=== PATIENT | female | born 1970 | race Caucasian/White ===

== ENCOUNTER 2019-12-30 00:36 | Outpatient (CLI) | payer BC, SELFPAY ==
[2019-12-30 21:18] LABS: SARS-CoV-2 RNA PCR Negative
== END 2019-12-30 00:37 | disposition home or self-care (01) ==
LOC: ANHCOVIDDT 00:36
PROVIDERS: PCP Family Medicine; Visit Provider Internal Medicine Gastroenterology
DX: Z01.812 Encounter for preprocedural laboratory examination (principal); Z20.828 Contact with and (suspected) exposure to other viral communicable diseases
CPT/HCPCS: 87635; C9803; U0003

== ENCOUNTER 2020-01-02 01:20 | Day surgery (SDC) | payer BC, SELFPAY ==
[2019-12-28 11:10] VITALS: BMI 29.5
--- NOTE | 2020-01-01 11:56 | WPDANESEPPF ---
Anes - Initial Pre Proc Eval Procedure: Operation Date: 01/02/20 10:30 Proposed Procedures p Esophagogastroduodenoscopy & Colonoscopy - Ernst Lawton MD Date/Time: 01/01/20 11:56 Surgeon: Ernst Lawton MD Pre Op Diagnosis: anemic, occult GI bleeding Patient Data Age: 49 Gender: F Height: 1.61 m Weight: 77 kg Allergies Allergy/AdvReac Type Severity Reaction Status Date / Time chlorpheniramine Allergy Intermediate unknown Verified 01/02/20 09:43 [Ed A-Hist DM] dextromethorphan Allergy Intermediate unknown Verified 01/02/20 09:43 [Ed A-Hist DM] phenylephrine [Ed A-Hist DM] Allergy Intermediate unknown Verified 01/02/20 09:43 pseudoephedrine Allergy Intermediate Dizziness Verified 01/02/20 09:43 ranitidine Allergy Intermediate Rash Verified 01/02/20 09:43 triprolidine [Aprodine] Allergy Intermediate unknown Verified 01/02/20 09:43 Home Medications Medication Instructions Recorded Confirmed Type cetirizine 10 mg tablet 10 mg PO BID 11/28/19 12/28/19 History famotidine 40 mg tablet 40 mg PO BID tablet 11/28/19 12/28/19 History hydroxychloroquine 200 mg tablet 200 mg PO BID 11/28/19 12/28/19 History simvastatin 5 mg tablet 5 mg PO DAILY #30 tablet 11/28/19 12/28/19 Rx doxycycline hyclate 100 mg capsule 100 mg PO DAILY #15 cap 12/21/19 12/28/19 Rx Patient hx anesthesia problems: none Family hx anesthesia problems: none PMFSH Past Medical History Medical History Allergies Arthritis Asthma High cholesterol IBS (irritable bowel syndrome) Migraine Obesity Thigh abscess Surgical History Surgical History H/O tubal ligation S/P D&C (status post dilation and curettage) Family History Family History Grandparent Diabetes mellitus Cerebrovascular accident Father Hypertension, Onset Age: 51 Family history of elevated blood lipids, Onset Age: 51 Acute myocardial infarction, Onset Age: 51 Family history of coronary artery disease, Onset Age: 51 Mother Family history of rheumatoid arthritis Social History Social History Smoking packs per day: 1 Smoking cigarettes per day: 20.0 Years smoked: 15 Smoking pack-years: 15.00 Smoking status: Former smoker Tobacco type: cigarettes Alcohol intake: current Substance use: current Substance use type: marijuana Last use: WEEK Living arrangements: with family 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 Anes - Eval Final PreProcedure Day of Procedure 01/01/20 11:56 Patient weight: overweight Heart: regular rate and rhythm Lungs: clear to auscultation and normal air movement Airway: Mallampati scale class II Neurological: alert and oriented Last oral intake: >/= 8 hours ASA classification: III Emergent: no Anesthetic plan: proceed Anesthesia type and monitoring: general GIVS and standard monitoring Informed Consent: The patient's anesthetic plan and its attendant risks and benefits were discussed with the patient/family/POA. Questions were solicited and answers provided to the satisfaction of the patient/family/POA.
[2020-01-02 09:44] VITALS: BP 105/66; PULSE 72; RESP 16; TEMP 36.6; O2SAT 100; BMI 29.2
[2020-01-02] MEDS: LACTATED RINGERS 1,000 ML 150 ML IV CONT (10:09)
--- NOTE | 2020-01-02 10:15 | WPDGICN ---
Assessment and Plan Assessment and plan (1) SONY (iron deficiency anemia): Code(s): D50.9 - Iron deficiency anemia, unspecified Status: Acute Assessment and Plan: Patient found to have iron deficiency anemia. Now with occult blood in stools. Plan is for both colonoscopy EGD in small-bowel series if necessary to evaluate for iron deficiency. An occult blood loss. Iron replacement will start after endoscopy is accomplished. Further recommendations will be given after endoscopy. (2) Occult blood in stools: Code(s): R19.5 - Other fecal abnormalities Status: Acute (3) Hidradenitis suppurativa: Code(s): L73.2 - Hidradenitis suppurativa Status: Acute GI Consult Note Consult date/time: 01/02/20 10:15 HPI: Mag Thurston is a 49 year old female Seen in evaluation at the request of Dr. Alma Toth. patient reports that she became weak after receiving a flu shot. She was evaluated with blood count which revealed her to be anemic. Iron indices were noted to be low. Patient denies any obvious blood in her stools. However stools were confirmed e Hemoccult-psitive in primary doctor's office. Family history is noncontributory. Past medical history is significant for hidradenitis suppurativa. She has had abscesses drained most recently on her thigh. Review of Systems Review of Systems: All systems reviewed & are unremarkable except as noted in HPI and below PMFSH Past Medical History Medical History Allergies Arthritis Asthma High cholesterol IBS (irritable bowel syndrome) Migraine Obesity Thigh abscess Surgical History Surgical History H/O tubal ligation S/P D&C (status post dilation and curettage) Family History Family History Grandparent Diabetes mellitus Cerebrovascular accident Father Hypertension, Onset Age: 51 Family history of elevated blood lipids, Onset Age: 51 Acute myocardial infarction, Onset Age: 51 Family history of coronary artery disease, Onset Age: 51 Mother Family history of rheumatoid arthritis Social History Social History Smoking packs per day: 1 Smoking cigarettes per day: 20.0 Years smoked: 15 Smoking pack-years: 15.00 Smoking status: Former smoker Tobacco type: cigarettes Alcohol intake: current Substance use: current Substance use type: marijuana Last use: WEEK Living arrangements: with family 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 Meds Home Medications and Allergies Home Medications Medication Instructions Recorded Confirmed Type cetirizine 10 mg tablet 10 mg PO BID 11/28/19 12/28/19 History famotidine 40 mg tablet 40 mg PO BID tablet 11/28/19 12/28/19 History hydroxychloroquine 200 mg tablet 200 mg PO BID 11/28/19 12/28/19 History simvastatin 5 mg tablet 5 mg PO DAILY #30 tablet 11/28/19 12/28/19 Rx doxycycline hyclate 100 mg capsule 100 mg PO DAILY #15 cap 12/21/19 12/28/19 Rx Allergies Allergy/AdvReac Type Severity Reaction Status Date / Time chlorpheniramine Allergy Intermediate unknown Verified 01/02/20 09:43 [Ed A-Hist DM] dextromethorphan Allergy Intermediate unknown Verified 01/02/20 09:43 [Ed A-Hist DM] phenylephrine [Ed A-Hist DM] Allergy Intermediate unknown Verified 01/02/20 09:43 pseudoephedrine Allergy Intermediate Dizziness Verified 01/02/20 09:43 ranitidine Allergy Intermediate Rash Verified 01/02/20 09:43 triprolidine [Aprodine] Allergy Intermediate unknown Verified 01/02/20 09:43 Vital Signs Vital Signs - 24 hr 01/02/20 09:44 Temperature 97.8 F Pulse Rate 72 Respiratory Rate 16 Blood Pressure 105/66 Pulse Oximetry 100
[2020-01-02 10:57] VITALS: BP 91/50; PULSE 76; RESP 17; O2SAT 99
[2020-01-02 11:07] VITALS: BP 106/58; PULSE 70; RESP 20; O2SAT 100
[2020-01-02 11:17] VITALS: BP 121/81; PULSE 75; RESP 19; O2SAT 100
[2020-01-02 11:23] LABS: Hematocrit 32.9 % (37.0-47.0); Hemoglobin 10.2 g/dL (12.0-15.0); Mean Corpuscular Hemoglobin 25.2 pg (26-34); Mean Corpuscular Volume 81.4 fl (80-100); Mean Platelet Volume 9.4 fl (7.4-10.4); Platelet Count Result 335 k/mm3 (150-375); Red Blood Count 4.04 M/mm3 (4.2-5.4); Red Cell Distribution Width 15.1 % (11.5-14.5); White Blood Count 6.2 K/mm3 (4.5-10.0)
[2020-01-02 11:34] LABS: Alanine Aminotransferase 17 U/L (4-35); Albumin Level 3.7 g/dL (3.5-5.1); Alkaline Phosphatase 106 U/L (38-126); Anion Gap 5 mmol/L (8-16); Aspartate Amino Transferase 29 U/L (14-36); Bilirubin,Total 0.3 mg/dL (0.2-1.3); Blood Urea Nitrogen 8 mg/dL (7-17); Calcium 8.8 mg/dL (8.4-10.2); Carbon Dioxide 32 mmol/L (22-30); Chloride 103 mmol/L (98-107); Estimated CRCL calculation 74 ml/min; Estimated Glomerular Filt Rate > 60; Glucose 82 mg/dL (65-105); Sodium 140 mmol/L (137-145)
[2020-01-02 12:05] LABS: Carcinoembryonic Antigen 2.2 ng/mL (0.0-3.0)
== END 2020-01-02 11:34 | disposition home or self-care (01) ==
PROVIDERS: PCP Family Medicine; Visit Provider Internal Medicine Gastroenterology
PROC: 0DJ08ZZ Inspection of Upper Intestinal Tract, Via Natural or Artificial Opening Endoscopic (ICD-10-PCS; CPT 43235; principal; 2020-01-02 10:30)
DX: R19.5 Other fecal abnormalities (principal); D50.9 Iron deficiency anemia, unspecified; D12.2 Benign neoplasm of ascending colon; D12.3 Benign neoplasm of transverse colon; K64.8 Other hemorrhoids; K58.9 Irritable bowel syndrome, unspecified; E78.00 Pure hypercholesterolemia, unspecified; J45.909 Unspecified asthma, uncomplicated; Z87.891 Personal history of nicotine dependence; F12.90 Cannabis use, unspecified, uncomplicated
CPT/HCPCS: 45380; 45385; 45381; 36415; 80053; 82378; 85027; 87081; 88305; J2704; J7120

== ENCOUNTER 2020-03-17 17:40 | Emergency (ER) | payer BC, SELFPAY ==
[2020-03-17] VITALS (23 sets, daily range): BP systolic 105–132; BP diastolic 61–100; PULSE 107; RESP 20; TEMP 36.4; O2SAT 85–98
--- NOTE | ~2020-03-17 | CT_ITS ---
EXAMINATION: CT abdomen pelvis w con DATE: 03/17/2020 20:12 INDICATION: Postoperative abdominal pain TECHNIQUE: Computed tomography (CT) of the abdomen and pelvis was performed without intravenous contr ast. Automated exposure control and iterative reconstruction technique were employed. Exam dose: 582 .43 mGy-cm total exam DLP. COMPARISON: 07/02/2005 CT abdomen FINDINGS: There is mild focal atelectasis at the dependent lower lobes. Normal heart size. No pericardial or pleural effusion. Small sliding hiatal hernia. No hepatic, splenic, pancreatic, adrenal or renal space occupying mass lesion is detected. There is a 2 mm nonobstructing lower pole right renal calculus. Normal caliber of the abdominal aorta. No intraperitoneal or retroperitoneal or pelvic mass lesion o r lymphadenopathy. The uterus, adnexal areas and urinary bladder are unremarkable. There is focal minimal narrowing and wall thickening at the hepatic flexure of the colon. There is s urgical resection of the proximal right colon. There is multilocular up to 3.5 cm wide 5.3 cm vertical dimension fluid collection with peripheral en hancement in the right lower quadrant along the right lateral aspect of the ascending colon, consiste nt with bowel leak and/or abscesses. There is surrounding fat stranding consistent with inflammation. There are gas containing small and large bowel with fluid levels, consistent with mild adynamic ileus . No bowel obstruction is evident. There is mild free fluid in the cul de sac. IMPRESSION: Multilocular abscess along the right lateral aspect of the ascending colon proximal to t he partial right colectomy Focal soft tissue thickening of the wall of the colon and luminal narrowing at the splenic flexure of the colon. Colon mass at this site is not excluded. 2 mm nonobstructing lower pole right renal calculus Reviewed, dictated and finalized at [facility] Reviewed, dictated and finalized at [facility]. 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 Colon mass at this site is not excluded. 2 mm nonobstructing lower pole right renal calculus
--- NOTE | ~2020-03-17 | XR_ITS ---
XR abdomen obstructive series DATE: 03/17/2020 19:14 INDICATION: Right upper quadrant abdominal pain. Status post colon resection 02/24/2020. TECHNIQUE: Portable supine AP and upright AP views COMPARISON: None FINDINGS: There are numerous nondilated gas distended small bowel segments overlying the abdomen, as well as gaseous distention of much of the colon. The appearance may be consistent with adynamic ileus . Recommend clinical correlation. No intraperitoneal free air is detected. No visceromegaly is evident. No significant abnormal calcification is detected. The included lower lung zones appear clear. Heart size appears normal. IMPRESSION: Gas distended small bowel and large bowel, possibly secondary to adynamic ileus; recommen d clinical correlation. No intraperitoneal free air is detected Reviewed, dictated and finalized at [facility] Reviewed, dictated and finalized at [facility]. 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 No intraperitoneal free air is de tected
--- NOTE | 2020-03-17 18:03 | ED.GENADULT ---
HPI - General Adult General Chief complaint: Abdominal Pain Stated complaint: post op issues Time Seen by Provider: 03/17/20 17:51 Source: patient and family (mother) Mode of arrival: ambulatory Limitations: no limitations History of Present Illness HPI narrative: 49-year-old woman who is status post laproscopic right colectomy for 5 cm adenoma in ascending colon, procedure was 02/24/2020. Discharged on day 2 and had been doing well until this week when she developed significant RUQ pain and fever. Mother reports to be 100.2 yesterday and today, treating with tylenol. She has been having diarrhea, normal in color. she had advanced her diet as tolerated as directed by surgeon. She is taking all medications as recommended. Related Data Home Medications Medication Instructions Recorded Confirmed cetirizine 10 mg tablet 10 mg PO BID 11/28/19 04/08/20 famotidine 40 mg tablet 40 mg PO BID tablet 11/28/19 04/08/20 hydroxychloroquine 200 mg tablet 200 mg PO BID 11/28/19 04/08/20 ferrous sulfate 325 mg (65 mg 325 mg PO BID 01/09/20 04/08/20 iron) tablet omeprazole 40 mg capsule,delayed 40 mg PO BID 01/09/20 04/08/20 release Allergies Allergy/AdvReac Type Severity Reaction Status Date / Time chlorpheniramine Allergy Intermediate unknown Verified 04/08/20 10:48 [Ed A-Hist DM] dextromethorphan Allergy Intermediate unknown Verified 04/08/20 10:48 [Ed A-Hist DM] phenylephrine [Ed A-Hist DM] Allergy Intermediate unknown Verified 04/08/20 10:48 pseudoephedrine Allergy Intermediate Dizziness Verified 04/08/20 10:48 ranitidine Allergy Intermediate Rash Verified 04/08/20 10:48 triprolidine [Aprodine] Allergy Intermediate unknown Verified 04/08/20 10:48 Review of Systems Review of Systems: All systems reviewed & are unremarkable except as noted in HPI and below PMFSH Past Medical History Medical History (Updated 04/08/20 @ 11:15 by Alma Toth DO) Allergies Arthritis Asthma High cholesterol Hives of unknown origin IBS (irritable bowel syndrome) Migraine Obesity Thigh abscess Surgical History Surgical History (Updated 04/10/20 @ 08:50 by Amberly Gonsalves PA-C) Abscess of right thigh H/O tubal ligation S/P D&C (status post dilation and curettage) Status post colectomy right colectomy 02/24/20 Family History Family History Grandparent Diabetes mellitus Cerebrovascular accident Father Hypertension, Onset Age: 51 Family history of elevated blood lipids, Onset Age: 51 Acute myocardial infarction, Onset Age: 51 Family history of coronary artery disease, Onset Age: 51 Mother Family history of rheumatoid arthritis Social History Social History Years smoked: 15 Smoking status: Current every day smoker Tobacco type: cigarettes Alcohol intake: current Substance use: current Substance use type: marijuana Last use: WEEK 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 Exam Const: General: ill appearing Orientation/consciousness: patient oriented x3 Eyes: Conjunctivae: conjunctivae normal Pupils: Equal, round and reactive pupils present Resp: Effort & Inspection: normal respiratory effort Auscultation: clear to auscultation bilaterally Cardio: Rate: regular rate and tachycardic GI: GI Palp: Yes Soft to palpation and Yes Tenderness to palpation present (GI) (RUQ and flank) Auscultation: normal bowel sounds Back/Spine/Pelvis: Back: no CVA tenderness Skin: General skin exam: normal color Other: laproscope incisions healing well, no erythema or drainage. Neuro: General: patient oriented x3 Extrem: General: normal to inspection Psych: Affect: Anxious affect present Course Course Emergency Course: CT shows abscess at surgical site. Spoke with Dr. Dong
[2020-03-17 18:32] LABS: Basophils Absolute Auto 0.1 K/mm3 (0.0-0.1); Basophils Percent Auto 0.4 % (0.2-1.2); Eosinophils Absolute Auto 0.1 K/mm3 (0-0.3); Eosinophils Percent Auto 0.7 % (0-4.4); Hematocrit 37.4 % (37.0-47.0); Hemoglobin 11.9 g/dL (12.0-15.0); Immature Granulocyte Absolute 0.04 K/mm3 (0.00-0.031); Immature Granulocyte Percent A 0.3 % (0-0.5); Lymphocytes Absolute Auto 1.94 K/mm3 (0.9-3.2); Mean Corpuscular HGB Conc 31.8 g/dl (32-36); Mean Corpuscular Hemoglobin 26.9 pg (26-34); Mean Corpuscular Volume 84.6 fl (80-100); Mean Platelet Volume 9.7 fl (7.4-10.4); Monocytes Absolute Auto 1.2 K/mm3 (0.1-0.6); Monocytes Percent Auto 9.3 % (2.6-8.5); Neutrophils Absolute Auto 9.6 K/mm3 (1.3-6.7); Neutrophils Percent Auto 74.3 % (45.5-73.1); Platelet Count Result 457 k/mm3 (150-375); Red Blood Count 4.42 M/mm3 (4.2-5.4)
[2020-03-17 18:40] LABS: Add Urine Microscopic? YES; Appearance Urine Clear (Clear); Bilirubin Urine Negative (Negative); Blood Urine Negative (Negative); Color Urine Amber (Yellow); Glucose Urine UA Negative (Negative); Ketones Urine Trace mg/dL (Negative); Leukocyte Esterase Ur Negative LEU/UL (Negative); Mucus Urine Heavy /lpf; Nitrate Urine Negative (Negative); Protein Urine 2+ mg/dL (Negative); Squamous Epithelial Cell Urine Moderate /hpf (Few); WBC Urine 0-3 /hpf
[2020-03-17 18:43] LABS: Lactic Acid Reflex 0.7 mmol/L (0.7-2.1)
[2020-03-17 18:44] LABS: Alanine Aminotransferase 22 U/L (4-35); Albumin Level 3.9 g/dL (3.5-5.1); Alkaline Phosphatase 147 U/L (38-126); Anion Gap 6 mmol/L (8-16); Aspartate Amino Transferase 25 U/L (14-36); Bilirubin,Total 0.4 mg/dL (0.2-1.3); Blood Urea Nitrogen 10 mg/dL (7-17); Calcium 9.1 mg/dL (8.4-10.2); Carbon Dioxide 27 mmol/L (22-30); Chloride 100 mmol/L (98-107); Estimated CRCL calculation 71 ml/min; Estimated Glomerular Filt Rate > 60; Glucose 109 mg/dL (65-105); Lipase 103 U/L (23-300); Potassium 3.7 mmol/L (3.4-5.0); Sodium 133 mmol/L (137-145)
[2020-03-17] MEDS: HYDROmorphone HCL INJ (*CRX) 1 MG/ML SYR IV PUSH (19:02)
[2020-03-17] MEDS: SODIUM CHLORIDE 0.9% IV 1,000 ML 999 ML IV CONT (19:03)
[2020-03-17] MEDS: HYDROmorphone HCL INJ (*CRX) 1 MG/ML SYR 0.5 MG IV PUSH (22:18)
[2020-03-18] VITALS (11 sets, daily range): BP systolic 108–109; BP diastolic 58–65; PULSE 81–86; RESP 18–20; O2SAT 97–98
--- NOTE | 2020-03-18 00:54 | PC.NURSE ---
report called to Jocelyn Amaya.
--- NOTE | 2020-03-18 01:01 | PC.NURSE ---
called [facility] to request transport. ETA [id number]
== END 2020-03-18 01:51 | disposition short-term general hospital (02) ==
PROVIDERS: Physician Assistant; Emergency Provider Emergency Medicine; PCP Family Medicine
DX: T81.43XA Infection following a procedure, organ and space surgical site, initial encounter (principal); K63.0 Abscess of intestine; M19.90 Unspecified osteoarthritis, unspecified site; J45.909 Unspecified asthma, uncomplicated; E78.00 Pure hypercholesterolemia, unspecified; K58.9 Irritable bowel syndrome, unspecified; E66.9 Obesity, unspecified; Z68.28 Body mass index [BMI] 28.0-28.9, adult; Z87.891 Personal history of nicotine dependence
CPT/HCPCS: 36415; 74019; 74177; 80053; 81001; 83605; 83690; 85025; 87040; 96361; 96365; 96375; 96376; 99285; J1170; J2543; J7030; Q9967

== ENCOUNTER 2020-08-30 12:20 | Emergency (ER) | payer BC, SELFPAY ==
--- NOTE | ~2020-08-30 | XR_ITS ---
EXAMINATION: XR chest 2V EXAM DATE: 08/30/2020 12:53 INDICATION: Cough, congestion and shortness of breath, wheezing.. TECHNIQUE: Frontal and lateral projections of the chest obtained and reviewed. There is no prior muna dy for comparison. FINDINGS: The lungs are clear. There are no pleural effusions. The cardiomediastinal silhouette is within normal limits. There is no pneumothorax suspected. The bones and soft tissues are unremarkab le. IMPRESSION: No acute cardiopulmonary findings. Reviewed, dictated and finalized at [facility].
[2020-08-30 12:28] VITALS: BP 138/81; PULSE 94; RESP 20; TEMP 37.1; O2SAT 96
--- NOTE | 2020-08-30 12:34 | ED.URI ---
HPI - URI/Sore Throat General Chief Complaint: Upper Respiratory Infection Stated Complaint: sinus issues/congestion/cough Time Seen by Provider: 08/30/20 12:34 Source: patient and RN notes reviewed Mode of arrival: ambulatory Limitations: no limitations History of Present Illness HPI Narrative: 50-year-old female presents to the [facility] with complaints of a productive cough, facial pain and pressure, nasal congestion. States symptoms have been going on for over 4 days. Has tried rjfc-[id number] products and leftover amoxicillin with no relief at all. Patient is a smoker. Has not been able to smoke for the last 2 days due to her symptoms. States that she is allergic to multiple tkzj-itn-hqsetsh products. Patient has a history of bronchitis. Has been taking her yosq-aka-gwetrar allergy medication as well Related Data Home Medications Medication Instructions Recorded Confirmed cetirizine 10 mg tablet 10 mg PO BID 11/28/19 08/30/20 famotidine 40 mg tablet 40 mg PO BID tablet 11/28/19 08/30/20 hydroxychloroquine 200 mg tablet 200 mg PO BID 11/28/19 08/30/20 omeprazole 40 mg capsule,delayed 40 mg PO BID 01/09/20 08/30/20 release Allergies Allergy/AdvReac Type Severity Reaction Status Date / Time chlorpheniramine Allergy Intermediate unknown Verified 08/30/20 12:43 [Ed A-Hist DM] dextromethorphan Allergy Intermediate unknown Verified 08/30/20 12:43 [Ed A-Hist DM] phenylephrine [Ed A-Hist DM] Allergy Intermediate unknown Verified 08/30/20 12:43 pseudoephedrine Allergy Intermediate Dizziness Verified 08/30/20 12:43 ranitidine Allergy Intermediate Rash Verified 08/30/20 12:43 triprolidine [Aprodine] Allergy Intermediate unknown Verified 08/30/20 12:43 Review of Systems Review of Systems: All systems reviewed & are unremarkable except as noted in HPI and below Constitutional: Constitutional: Reports as per HPI, Reports no additional constitutional complaints, Denies chills and Reports fever(s) (Low-grade 99 9) Eyes: Eyes: Reports no additional eye complaints, Denies change in vision and Denies photophobia ENT: Reports as per HPI and Reports nasal congestion Cardiovascular: Cardiovascular: Reports no additional cardiovascular complaints and Denies chest pain Respiratory: Respiratory: Reports as per HPI, Reports chest congestion, Reports cough, Reports dyspnea and Denies wheezing Gastrointestinal: Gastrointestinal: Reports no additional gastrointestinal complaints Genitourinary: Genitourinary: Reports no additional female genitourinary complaints Musculoskeletal: Musculoskeletal: Reports no additional musculoskeletal complaints Integumentary/Breasts: Skin/Breast: Reports system reviewed and no additional complaints, except as docu Neurologic: Reports system reviewed and no additional complaints, except as documented Psychiatric: Psychiatric: Reports no additional psychiatric complaints Allergic/Immunologic: Allergic/Immunologic: Reports no additional allergic/immunologic complaints COUNT INCLUDES THE [facility] Past Medical History Medical History Allergies Arthritis Asthma High cholesterol Hives of unknown origin IBS (irritable bowel syndrome) Migraine Obesity Thigh abscess Surgical History Surgical History Abscess of right thigh H/O tubal ligation S/P D&C (status post dilation and curettage) Status post colectomy right colectomy 02/24/20 Family History Family History Grandparent Diabetes mellitus Cerebrovascular accident Father Hypertension, Onset Age: 51 Family history of elevated blood lipids, Onset Age: 51 Acute myocardial infarction, Onset Age: 51 Family history of coronary artery disease, Onset Age: 51 Mother Family history of rheumatoid arthritis Social History Social History Years smoked
[2020-08-30] MEDS: ALBUTEROL SULFATE NEB 2.5 MG/3 ML INH INHALATION (12:57)
[2020-08-30] MEDS: IPRATROPIUM BR 0.02% INH SOLN 0.5 MG/2.5 ML VIAL INHALATION (12:57)
[2020-08-30] MEDS: predniSONE 20 MG TABLET 40 MG PO (12:57)
[2020-08-30 13:26] VITALS: O2SAT 98
== END 2020-08-30 13:43 | disposition home or self-care (01) ==
PROVIDERS: Emergency Provider Nurse Practitioner; PCP Family Medicine
DX: J40 Bronchitis, not specified as acute or chronic (principal); F17.210 Nicotine dependence, cigarettes, uncomplicated; J45.909 Unspecified asthma, uncomplicated; E78.00 Pure hypercholesterolemia, unspecified; E66.9 Obesity, unspecified; Z68.30 Body mass index [BMI] 30.0-30.9, adult
CPT/HCPCS: 71046; 94640; 99213; G0463; J7512

== ENCOUNTER 2021-04-09 09:24 | Outpatient (CLI) | payer BC, SELFPAY ==
--- NOTE | ~2021-04-09 | XR_ITS ---
EXAMINATION: XR knee RT min 4V DATE: 04/09/2021 09:40 INDICATION: Right knee pain TECHNIQUE: Four views of the right knee were obtained. COMPARISON: None. FINDINGS: Alignment is normal. No fracture or osteochondral lesion. Joint spaces are normal with no e rosions. No joint effusion/synovitis. Soft tissues are unremarkable. IMPRESSION: 1. No acute osseous abnormality. Reviewed, dictated and finalized at location [facility]. ATOLOGICAL SURGEON
== END 2021-04-09 09:25 | disposition home or self-care (01) ==
LOC: ANHIMG 09:28
PROVIDERS: PCP Family Medicine; Visit Provider Family Medicine
DX: M25.561 Pain in right knee (principal)
CPT/HCPCS: 73564

== ENCOUNTER 2021-04-18 02:24 | Day surgery (SDC) | payer BC, SELFPAY ==
[2021-04-03 13:42] VITALS: BMI 31.0
--- NOTE | 2021-04-17 13:23 | P.PNAN_ITS ---
Anes - Eval Pre Procedure Procedure: Operation Date: 04/18/21 07:30 Proposed Procedures p Screening Colonoscopy - Ernst Lawton MD Date/Time: 04/17/21 13:23 Pre Op Diagnosis: hx of colon polyps Patient Data Age: 50 Gender: F Height: 1.6 m Weight: 79.5 kg Allergies Allergy/AdvReac Type Severity Reaction Status Date / Time chlorpheniramine Allergy Intermediate unknown Verified 04/07/21 11:50 [Ed A-Hist DM] dextromethorphan Allergy Intermediate unknown Verified 04/07/21 11:50 [Ed A-Hist DM] phenylephrine [Ed A-Hist DM] Allergy Intermediate unknown Verified 04/07/21 11:50 pseudoephedrine Allergy Intermediate Dizziness Verified 04/07/21 11:50 ranitidine Allergy Intermediate Rash Verified 04/07/21 11:50 triprolidine [Aprodine] Allergy Intermediate unknown Verified 04/07/21 11:50 Home Medications Medication Instructions Recorded Confirmed Type cetirizine 10 mg tablet 10 mg PO BID 11/28/19 04/07/21 History famotidine 40 mg tablet 40 mg PO BID tablet 11/28/19 04/07/21 History hydroxychloroquine 200 mg tablet 200 mg PO BID 11/28/19 04/07/21 History inhalational spacing device #1 ea 08/30/20 04/07/21 Rx [Aerochamber with Flowsignal] albuterol sulfate 90 mcg/actuation 2 puff INHALATION QID PRN #8.5 g 10/07/20 04/07/21 Rx aerosol inhaler simvastatin 10 mg tablet See Rx Instructions .ROUTE 03/24/21 04/07/21 Rx .COMPLEX #30 tablet naltrexone 8 mg-bupropion 90 mg 1 tablet PO .use as directed #70 04/07/21 04/07/21 Rx tablet,extended release tablet naproxen 500 mg tablet 500 mg PO BID PRN #60 tablet 04/07/21 04/07/21 Rx Patient hx anesthesia problems: none Family hx anesthesia problems: none Results Review: All pre-operative results and documents have been reviewed as part of the pre-operative evaluation. [facility] Past Medical History Medical History (Updated 04/17/21 @ 13:23 by James Basilio DO) Allergies Arthritis Asthma Colonic mass GERD (gastroesophageal reflux disease) High cholesterol Hives of unknown origin IBS (irritable bowel syndrome) Migraine Obesity Occult blood in stools PONV (postoperative nausea and vomiting) Thigh abscess Surgical History Surgical History Abscess of right thigh H/O tubal ligation S/P D&C (status post dilation and curettage) Status post colectomy right colectomy 02/24/20 Family History Family History Grandparent Diabetes mellitus Cerebrovascular accident Father Hypertension, Onset Age: 51 Family history of elevated blood lipids, Onset Age: 51 Acute myocardial infarction, Onset Age: 51 Family history of coronary artery disease, Onset Age: 51 Mother Family history of rheumatoid arthritis Social History Social History Smoking packs per day: 1 Smoking cigarettes per day: 20.0 Years smoked: 22 Smoking pack-years: 22.00 Tobacco type: cigarettes Alcohol intake: current Substance use: current Substance use type: marijuana Last use: WEEK 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
[2021-04-18 06:25] VITALS: BP 130/75; PULSE 68; RESP 18; TEMP 37.1; O2SAT 99; BMI 31.9
[2021-04-18] MEDS: LACTATED RINGERS 1,000 ML 150 ML IV CONT (06:45)
--- NOTE | 2021-04-18 06:48 | WPDANESEFPP ---
Anes - Eval Final PreProcedure Day of Procedure 04/18/21 06:48 Patient weight: obese Heart: regular rate and rhythm Lungs: clear to auscultation Airway: Mallampati scale class II Neurological: alert and oriented Last oral intake: >/= 8 hours ASA classification: III Emergent: no Anesthetic plan: proceed Anesthesia type and monitoring: general GIVS and standard monitoring Results Review: All pre-operative results and documents have been reviewed as part of the pre-operative evaluation. Informed Consent: The patient's anesthetic plan and its attendant risks and benefits were discussed with the patient/family/POA. Questions were solicited and answers provided to the satisfaction of the patient/family/POA.
--- NOTE | 2021-04-18 07:16 | WPDGICN ---
Assessment and Plan Assessment and plan (1) History of colon polyps: Code(s): Z86.010 - Personal history of colonic polyps Status: Acute Assessment and Plan: Patient has a history of a large colon polyp requiring right hemicolectomy 1 year and half years ago. Plan is for surveillance colonoscopy at now and at less frequent intervals in the future. GI Consult Note Consult date/time: 04/18/21 07:16 HPI: Mag Thurston is a 50 year old female Presents for follow-up colonoscopy. Patient was found have a very large colon polyp that required surgical resection 1-1/2 years ago. She presents today for follow-up surveillance exam. She reports that her stools are somewhat loose. She denies abdominal pain. She has had no bleeding. Family history is noncontributory. FORMERLY [facility] Past Medical History Medical History (Updated 04/18/21 @ 07:17 by Ernst Lawton MD) Allergies Arthritis Asthma Colonic mass GERD (gastroesophageal reflux disease) High cholesterol Hives of unknown origin IBS (irritable bowel syndrome) Migraine Obesity Occult blood in stools PONV (postoperative nausea and vomiting) Thigh abscess Surgical History Surgical History Abscess of right thigh H/O tubal ligation S/P D&C (status post dilation and curettage) Status post colectomy right colectomy 02/24/20 Family History Family History Grandparent Diabetes mellitus Cerebrovascular accident Father Hypertension, Onset Age: 51 Family history of elevated blood lipids, Onset Age: 51 Acute myocardial infarction, Onset Age: 51 Family history of coronary artery disease, Onset Age: 51 Mother Family history of rheumatoid arthritis Social History Social History Smoking packs per day: 1 Smoking cigarettes per day: 20.0 Years smoked: 15 Smoking pack-years: 15.00 Tobacco type: cigarettes Alcohol intake: current Substance use: current Substance use type: marijuana Last use: WEEK Living arrangements: with family 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 Meds Home Medications and Allergies Home Medications Medication Instructions Recorded Confirmed Type cetirizine 10 mg tablet 10 mg PO BID 11/28/19 04/07/21 History famotidine 40 mg tablet 40 mg PO BID tablet 11/28/19 04/07/21 History hydroxychloroquine 200 mg tablet 200 mg PO BID 11/28/19 04/07/21 History inhalational spacing device #1 ea 08/30/20 04/07/21 Rx [Aerochamber with Flowsignal] albuterol sulfate 90 mcg/actuation 2 puff INHALATION QID PRN #8.5 g 10/07/20 04/07/21 Rx aerosol inhaler simvastatin 10 mg tablet See Rx Instructions .ROUTE 03/24/21 04/07/21 Rx .COMPLEX #30 tablet naltrexone 8 mg-bupropion 90 mg 1 tablet PO .use as directed #70 04/07/21 04/07/21 Rx tablet,extended release tablet naproxen 500 mg tablet 500 mg PO BID PRN #60 tablet 04/07/21 04/07/21 Rx Allergies Allergy/AdvReac Type Severity Reaction Status Date / Time chlorpheniramine Allergy Intermediate unknown Verified 04/18/21 06:34 [Ed A-Hist DM] dextromethorphan Allergy Intermediate unknown Verified 04/18/21 06:34 [Ed A-Hist DM] phenylephrine [Ed A-Hist DM] Allergy Intermediate unknown Verified 04/18/21 06:34 pseudoephedrine Allergy Intermediate Dizziness Verified 04/18/21 06:34 ranitidine Allergy Intermediate Rash Verified 04/18/21 06:34 triprolidine [Aprodine] Allergy Intermediate unknown Verified 04/18/21 06:34 Vital Signs Vital Signs - 24 hr 04/18/21 06:25 Temperature 98.8 F Pulse Rate 68 Respiratory Rate 18 Blood Pressure 130/75 Pulse Oximetry 99 Exam Narrative: Physical exam reveals patient to be alert. Vital signs stable. HEENT exam is unremarkable. Patient
[2021-04-18] MEDS: SIMETHICONE ORAL SUSPENSION 20 MG/0.3 ML 30 ML BOTTLE 0.6 ML IRRIGATION (07:32)
[2021-04-18 07:41] VITALS: BP 128/81; PULSE 74; RESP 20; O2SAT 92
[2021-04-18 07:51] VITALS: BP 133/80; PULSE 70; RESP 21; O2SAT 96
[2021-04-18 08:01] VITALS: BP 127/84; PULSE 71; RESP 19; O2SAT 98
== END 2021-04-18 08:20 | disposition home or self-care (01) ==
PROVIDERS: PCP Family Medicine; Visit Provider Internal Medicine Gastroenterology
PROC: 0DJD8ZZ Inspection of Lower Intestinal Tract, Via Natural or Artificial Opening Endoscopic (ICD-10-PCS; CPT 45378; principal; 2021-04-18 07:30)
DX: Z12.11 Encounter for screening for malignant neoplasm of colon (principal); Z98.0 Intestinal bypass and anastomosis status; M19.90 Unspecified osteoarthritis, unspecified site; K21.9 Gastro-esophageal reflux disease without esophagitis; J45.909 Unspecified asthma, uncomplicated; K58.9 Irritable bowel syndrome, unspecified; E78.00 Pure hypercholesterolemia, unspecified; F17.210 Nicotine dependence, cigarettes, uncomplicated; F12.90 Cannabis use, unspecified, uncomplicated; Z79.51 Long term (current) use of inhaled steroids; E66.9 Obesity, unspecified; Z68.31 Body mass index [BMI] 31.0-31.9, adult
CPT/HCPCS: 45378; J2704; J7120

== ENCOUNTER 2021-10-01 18:47 | Emergency (ER) | payer BC, SELFPAY ==
[2021-10-01 19:05] VITALS: BP 133/92; PULSE 81; RESP 16; TEMP 37; O2SAT 100
--- NOTE | 2021-10-01 19:27 | ED.FEMALEGU ---
HPI - Female Genitourinary General Chief complaint: Urogenital-Female Stated complaint: abdominal pain, burning with irritation Time Seen by Provider: 10/01/21 19:27 History of Present Illness HPI Narrative: 51-year-old female who presents to express care with complaints of 36 hours of burning with urination pressure urgency frequency and voiding in small amounts. Patient denies any CVA tenderness reports suprapubic tenderness and mid lateral abdomen discomfort.Patient reports that she took 4 doses of left over amoxicillin the past 2 days for her symptoms.Patient denies any known fevers, chills or sweats, denies any nausea or vomiting or diarrhea. MD elicited complaint: dysuria and UTI Onset (ago): hour(s) (36) Location of symptoms: perineum, suprapubic and other (right lateral abdomen) Severity: moderate (6/10) Urinary symptoms: Dysuria, Urgency, Frequency and Hematuria Related Data Home Medications Medication Instructions Recorded Confirmed cetirizine 10 mg tablet (Zyrtec) 10 mg PO BID 11/28/19 05/22/21 famotidine 40 mg tablet (Pepcid) 40 mg PO BID 11/28/19 05/22/21 hydroxychloroquine 200 mg tablet 200 mg PO BID 11/28/19 05/22/21 (Plaquenil) Allergies Allergy/AdvReac Type Severity Reaction Status Date / Time chlorpheniramine Allergy Intermediate unknown Verified 05/22/21 14:16 [Ed A-Hist DM] dextromethorphan Allergy Intermediate unknown Verified 05/22/21 14:16 [Ed A-Hist DM] phenylephrine [Ed A-Hist DM] Allergy Intermediate unknown Verified 05/22/21 14:16 pseudoephedrine Allergy Intermediate Dizziness Verified 05/22/21 14:16 ranitidine Allergy Intermediate Rash Verified 05/22/21 14:16 triprolidine [Aprodine] Allergy Intermediate unknown Verified 05/22/21 14:16 Review of Systems Review of Systems: CONSTITUTIONAL: Denies fever, chills, or sweats. EYES: Denies visual changes, redness, or discharge. ENT: Denies rhinorrhea, congestion, sore throat, or otalgia. CARDIOVASCULAR: Denies chest pain, palpitations, or edema. RESPIRATORY: Denies cough or dyspnea. GASTROINTESTINAL: right mid lateral abdominal discomfort and suprapubic pressure, no nausea, vomiting, or diarrhea. GENITOURINARY: positive for dysuria or hematuria. SKIN: Denies rash or itching. MUSCULOSKELETAL: Denies back pain, joint pain, or myalgia. NEUROLOGIC: Denies headache, numbness, or weakness. PSYCHIATRIC: Positive for history of anxiety or depression. All systems reviewed & are unremarkable except as noted in HPI and below PMFSH Past Medical History Medical History Allergies Anxiety Arthritis Asthma Breast asymmetry Colonic mass Depression GERD (gastroesophageal reflux disease) High cholesterol Hives of unknown origin IBS (irritable bowel syndrome) Migraine Obesity Occult blood in stools PONV (postoperative nausea and vomiting) Screening mammogram, encounter for Thigh abscess Surgical History Surgical History Abscess of right thigh H/O tubal ligation (~2005) History of bladder suspension procedure (05/17/17) History of dilation and curettage (~2007) hscope d&c/endometrial ablation History of endometrial ablation (~2007) hscope d&c/endometrial ablation History of gynecologic surgery (~1999) cryosurgery--abnormal cells Status post colectomy right colectomy 02/24/20 Family History Family History Grandparent Diabetes mellitus Cerebrovascular accident Heart disease paternal grandfather Father Hypertension, Onset Age: 51 Family history of elevated blood lipids, Onset Age: 51 Acute myocardial infarction, Onset Age: 51 Family history of coronary artery disease, Onset Age: 51 Heart disease Mother Family history of rheumatoid arthritis Social History Social History Smoking packs per day
== END 2021-10-01 19:48 | disposition home or self-care (01) ==
PROVIDERS: Emergency Provider Registered Nurse; PCP Family Medicine
DX: N39.0 Urinary tract infection, site not specified (principal); F17.210 Nicotine dependence, cigarettes, uncomplicated; M19.90 Unspecified osteoarthritis, unspecified site; K21.9 Gastro-esophageal reflux disease without esophagitis; E78.00 Pure hypercholesterolemia, unspecified; E66.9 Obesity, unspecified; Z68.30 Body mass index [BMI] 30.0-30.9, adult
CPT/HCPCS: 81003; 87077; 87086; 87186; 99213; G0463

== ENCOUNTER → 2022-05-15 13:54 | Outpatient (CLI) | payer BC, SELFPAY ==
--- NOTE | ~2022-05-15 | XR_ITS ---
XR foot RT 2V DATE: 05/15/2022 14:27 INDICATION: Heel pain and swelling. TECHNIQUE: AP and lateral views COMPARISON: None FINDINGS: Mild plantar calcaneal enthesopathy. No associated erosive change or periostitis. No fracture or dislocation, periosteal reaction or bone destruction. IMPRESSION: Plantar calcaneal enthesopathy Reviewed, dictated and finalized at location B.
== END ==
PROVIDERS: PCP Family Medicine; Visit Provider Family Medicine
DX: M77.31 Calcaneal spur, right foot (principal)
CPT/HCPCS: 73620

== ENCOUNTER → 2022-11-18 14:36 | Outpatient (CLI) | payer BC, SELFPAY ==
--- NOTE | ~2022-11-18 | XR_ITS ---
XR abdomen/kub 1V DATE: 11/18/2022 14:44 INDICATION: Right-sided abdominal pain. Constipation/diarrhea TECHNIQUE: 2 AP views COMPARISON: 03/17/2020 CT abdomen pelvis 03/17/2020 KUB FINDINGS: A radiopaque bowel sutures are noted in the lateral right midabdomen. The psoas shadows are intact. No visceromegaly or significant abnormal calcification is detected. There is gaseous distent ion of the stomach and colon without abnormal dilatation or obstruction. The lung bases are clear. Heart size appears normal. IMPRESSION: Postoperative change of right abdomen; no evidence of bowel obstruction Reviewed, dictated and finalized at Location A. Reviewed, dictated and finalized at location B. IMPRESSION: Postoperative change of right abdomen; no evidence of bowel obstruc tion
== END ==
PROVIDERS: PCP Family Medicine; Visit Provider Nurse Practitioner
DX: R10.9 Unspecified abdominal pain (principal); R19.7 Diarrhea, unspecified; K59.00 Constipation, unspecified
CPT/HCPCS: 74018

== ENCOUNTER 2023-08-08 16:45 | Emergency (ER) | payer BC, SELFPAY ==
--- NOTE | ~2023-08-08 | XR_ITS ---
EXAMINATION: XR finger 2nd RT min 2V DATE: 08/08/2023 17:00 INDICATION: Right hand second digit injury and pain. TECHNIQUE: 4 views of right hand second digit were obtained. COMPARISON: None. FINDINGS: Bone alignment is normal. No fracture. Joint spaces are normal. IMPRESSION: 1. No fracture. Reviewed, dictated and finalized at location E. IMPRESSION: 1. No fracture.
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
[2023-08-08 16:53] VITALS: BP 106/63; PULSE 78; RESP 16; TEMP 37.1; O2SAT 97
[2023-08-08 16:55] VITALS: BP 106/63; PULSE 78; RESP 16; TEMP 37.1; O2SAT 97
== END 2023-08-08 17:14 | disposition home or self-care (01) ==
PROVIDERS: Emergency Provider Nurse Practitioner Family; PCP Family Medicine
DX: S63.630A Sprain of interphalangeal joint of right index finger, initial encounter (principal); X58.XXXA Exposure to other specified factors, initial encounter; Y93.16 Activity, rowing, canoeing, kayaking, rafting and tubing; M19.90 Unspecified osteoarthritis, unspecified site; J45.909 Unspecified asthma, uncomplicated; K21.9 Gastro-esophageal reflux disease without esophagitis; E78.00 Pure hypercholesterolemia, unspecified; E66.9 Obesity, unspecified; Z68.31 Body mass index [BMI] 31.0-31.9, adult
CPT/HCPCS: 73140; 99213; G0463

== ENCOUNTER 2024-05-15 07:15 | Inpatient (IN) | payer BC, SELFPAY ==
[2024-05-15] VITALS (18 sets, daily range): BP systolic 105–150; BP diastolic 63–79; PULSE 73–97; RESP 15–20; TEMP 36.2–37.2; O2SAT 92–99; BMI 31.6
--- NOTE | ~2024-05-15 | XR_ITS ---
EXAMINATION: XR chest 2V 05/15/2024 08:44 INDICATION: Shortness of breath PROCEDURE: 2 view chest COMPARISON: 08/30/2020 FINDINGS: The lungs are clear. The cardiomediastinal silhouette is within normal limits. There are no pleural effusions. There is no pneumothorax suspected. IMPRESSION: 1: NO ACUTE CARDIOPULMONARY DISEASE. Reviewed, dictated and finalized at location A.
--- OUTSIDE RECORDS SUMMARY | 2024-05-15 07:19 | XMS_ITS | Clinical Summary ---
Author Organization [facility] Address [address] [place] [address] Care Team Providers Care Braided Rug Maker Name Role Phone Ersnt Lawton MD Unavailable Scott Riddle MD Unavailable [phone] Allergies Active Allergy Reactions Criticality Noted Date Comments Pseudoephedrine Dizziness Medium 09/18/2019 As a child Medications ferrous sulfate 325 mg (65 mg of elemental iron) tablet TK 1 T PO BID 0 Active simvastatin (ZOCOR) 5 mg tablet Take 5 mg by mouth nightly 0 Active simvastatin (ZOCOR) 10 mg tablet simvastatin 10 mg tablet TAKE 1 TABLET BY MOUTH DAILY Active cetirizine (ZyrTEC) 10 mg capsuleIndicati ons:Urticaria, chronic Take 10 mg by mouth 2 (two) times a day 60 capsule 11 2 Active famotidine (PEPCID) 40 mg tabletIndicatio ns:Urticaria, chronic Take 1 tablet (40 mg total) by mouth 2 (two) times a day 60 tablet 3 3 Active hydroxychloroqu ine (PLAQUENIL) 200 mg tabletIndicatio ns:Connective Tissue Disease,Urticar ia Take 1 tablet (200 mg total) by mouth 2 (two) times a day 60 tablet 3 Active Active Problems Problem Noted Date Diagnosed Date Angio-edema 09/16/2020 Urticaria, chronic 09/16/2020 Chronic arthralgias of knees and hips 09/16/2020 Colon polyp 04/09/2020 Intra-abdominal abscess 03/18/2020 Assessment & Plan (03/20/2020 11:03 AM BEVERAGE SPECIALIST): - IR c/s: CT scan, possible drain d/c - Ertapenem - Monitor I/Os - IS Q1H - Pain control: POPPY APAP, PRN Oxy, PRN Dilaudid - Diet: Regular - Activity:OOBTC, ambulate w/ assist TID - DVT ppx: SCDs, LVX - Dispo: pending, PT/OT Overactive bladder 09/18/2019 Encounter for specialized medical examination Resolved Problems Problem Noted Date Diagnosed Date Resolved Date Cancer of right colon 02/07/20202020 Overview (02/07/2020): Added automatically from request for surgery [id number] Immunizations Immunization Administration Dates Next Due Influenza, Unspecified 11/20/2019 Surgical History Surgery Date Site/Laterality Comments COLONOSCOPY 12/17/2019 - 01/15/2020 BLADDER SUSPENSION 11/15/2017 - 12/15/2017 BREAST FIBROADENOMA SURGERY 05/16/1994 - 06/14/1994 TUBAL LIGATION 11/15/2006 - 12/15/2006 IMAGE GUIDED DRAINAGE PERITONEAL OR RETROPERITONEAL FLUID COLLECTION 03/18/2020 N/A ABSCESS CATHETER INJECTION 03/20/2020 N/A RIGHT COLECTOMY 02/24/2020 Laparoscopic right colectomy Medical History Medical History Date Comments Colorectal polyps Arthritis PONV (postoperative nausea and vomiting) Family History Medical History Relation Name Comments Heart disease Father Rheum arthritis Mother Stroke Paternal Grandfather Relation Name Status Comments Father (Age 50) Mother Alive Paternal Grandfather Social History Tobacco Use Types Packs/Day Years Used Date Smoking Tobacco: Every Day Cigarettes 1 35.2 Started: 1989 Smokeless Tobacco: Never Tobacco Cessation:Ready to Q uit: No; Counseling Given: No Comments:on/ off Alcohol Use Standard Drinks/Week Comments Not Currently 0 (1 standard drink = 0.6 oz pur e alcohol) Humiliation, Afraid, Rape, and Kick questionnair e Answer Date Recorded Within the last year, have y ou been afraid of your partner or ex-partner? Not asked 03/18/2020 Within the last year, have y ou been humiliated or emotionally abused in other ways by your partner or ex-partner? Not asked 03/18/2020 Physically Abused Not on file 03/18/2020 Sexually Abused Not on file 03/18/2020 Social Connection and Isolation Panel [NHANES] A nswer Date Recorded In a typical week, how many times do you talk on the phone with family, friends, or neighbors? Twice a week 03/18/19 How often do you get togethe r with friends or relatives? Twice a week 03/18/2020 How often do you attend chur ch or holiness services? 1 to 4 times per year 03/18/2020 Do you belong to any clubs o r organizations such as baptist groups, unions, fraternal or athletic groups, or school groups? No 03/18/2020 How often do you attend meet ings of the clubs or organizations you belong to? Never 03/18/2020 Are you , , di vorced, , never , or living with a partner? Never 03/18/2020 Overall Financial Resource Strain (CARDIA) Answe r Date Recorded How hard is it for you to pa y for the very basics like food, housing, medical care, and heating? Not hard at all 03/18/2020 Hunger Vital Sign Answer Date Recorded Within the past 12 months, y ou worried that your food would run out before you got the money to buy more. Never true 03/18/19 21 Within the past 12 months, t he food you bought just didn't last and you didn't have money to get more. Never true 03/18/2020 PRAPARE - Transportation Answer Date Re corded In the past 12 months, has l ack of transportation kept you from medical appointments or from getting medications? No 02/2020 In the past 12 months, has l ack of transportation kept you from meetings, work, or from getting things needed for daily living? No 03/18/2020 Comments No Sex and Gender Information Value Date Recorded Sex Assigned at Not on file Legal Sex Female 12:19 AM BEVERAGE SPECIALIST Gender Identity Female 04/02/2020 9:48 AM BEVERAGE SPECIALIST Sexual Orientation Choose not to disclose 2020 9:48 AM BEVERAGE SPECIALIST Obstetrics History Last Filed Vital Signs Vital Sign Reading Time Taken Comments Blood Pressure 94/61 04/09/2020 7:39 AM BEVERAGE SPECIALIST Pulse 88 04/09/2020 7:39 AM BEVERAGE SPECIALIST Temperature 36 C (96.8 F) 04/09/2020 7:39 AM BEVERAGE SPECIALIST Respiratory Rate 18 03/21/2020 9:28 AM BEVERAGE SPECIALIST Oxygen Saturation 94% 03/21/2020 9:28 AM BEVERAGE SPECIALIST Inhaled Oxygen Concentration - - Weight 78.6 kg (173 lb 3.2 oz) 04/09/2020 7:39 A M BEVERAGE SPECIALIST Height 161.3 cm (5' 3.5 ) 04/09/2020 7:39 AM BEVERAGE SPECIALIST Body Mass Index 30.2 04/09/2020 7:39 AM BEVERAGE SPECIALIST Plan of Treatment Health Maintenance Due Date Last Done Comments Breast Cancer Screening-Mammogram 1969 Cervical Cancer Screening 1969 Colon Cancer Screening-Colonoscopy 1969 Depression Screening 1969 Hepatitis C Screening 1969 DTaP/Tdap/Td Vaccine (1 - Tdap) 1980 Hepatitis B Screening 07/06/1987 Regular Well Visit/Exam 18-64 07/06/1987 Pneumococcal vaccine <65 (1 of 2 - PCV) 1988 Zoster Vaccine (1 of 2) 1988 Influenza Vaccine (#1) 2023 11/28/2019, [address] [employer] ACCESS OOS Advance Directives For more information, please contact: [phone] * Full Code (Latest Code Status on File) Date Activated Date Inactivated Comments 03/18/2020 3:19 AM 03/21/2020 3:13 PM * Full Code Date Activated Date Inactivated Comments 02/24/2020 11:16 AM 02/26/2020 8:36 PM Care Teams Braided Rug Maker Relationship Specialty Start Date End Date Ernst Lawton MD Store Mgr Gastroenterology 02/06/20 Scott Riddle MD Surgeon Colon and Rectal Surgery 02/06/20
--- OUTSIDE RECORDS SUMMARY | 2024-05-15 07:19 | XMS_ITS ---
Author Organization [facility] Address [address] [place] [address] Care Team Providers Care Certified Respiratory Therapist Name Role Phone Ernst Lawton MD Unavailable [phone] Scott Riddle MD Unavailable [phone] Active Problems Problem Noted Date Diagnosed Date Angio-edema 09/16/2020 Urticaria, chronic 09/16/2020 Chronic arthralgias of knees and hips 09/16/2020 Colon polyp 04/09/2020 Intra-abdominal abscess 03/18/2020 Assessment & Plan (03/20/2020 11:03 AM STUDIO CONTROL OPERATOR): - IR c/s: CT scan, possible drain d/c - Ertapenem - Monitor I/Os - IS Q1H - Pain control: POPPY APAP, PRN Oxy, PRN Dilaudid - Diet: Regular - Activity:OOBTC, ambulate w/ assist TID - DVT ppx: SCDs, LVX - Dispo: pending, PT/OT Overactive bladder 09/18/2019 Encounter for specialized medical examination Current Treatment and Therapy Plans No current plan information found. Past Treatment and Therapy Plans No past plan information found. Lifetime Dose Tracking * Chemical Lifetime Dose Automatic Entry Manual Entr y Fluoro Time 11 minutes 11 minutes 0 minutes Air kerma at the reference point (Ka,r) 123 mGy 1 23 mGy 0 mGy DLP 593 mGycm 593 mGycm 0 mGycm Resolved Problems Problem Noted Date Diagnosed Date Resolved Date Cancer of right colon 02/07/20202020 Overview (02/07/2020): Added automatically from request for surgery [id number]
--- OUTSIDE RECORDS SUMMARY | 2024-05-15 07:19 | XMS_ITS | Encounter Summary ---
Author Organization [facility] Healthcare Address [address] [place] [address] Care Team Providers Care Cell Reliner Name Role Phone Ernst Lawton MD Unavailable [phone] Scott Riddle MD Unavailable [phone] Alma Toht DO Primary Care Provider [phone] Encounter Details Date Type Department Care Team (Late st Contact Info) Description 03/20/2020 Telephone [facility] Radiology [address] [place] [address] Janelle Lin RN Social History Tobacco Use Types Packs/Day Years Used Date Smoking Tobacco: Every Day Cigarettes 1 35.2 Started: 1989 Smokeless Tobacco: Never Comments:on/ off Alcohol Use Standard Drinks/Week Comments [...] family, friends, or neighbors? Twice a week 02/01/20 21 How often do you get togethe r with friends or relatives? Twice a week 03/18/2020 How often do you attend chur ch or jainism services? 1 to 4 times per year 03/18/2020 Do you belong to any clubs o r organizations such as latter-day groups, unions, fraternal or athletic groups, or [...] on file Legal Sex Female 12:19 AM RETAIL SALESMAN Gender Identity Female 04/02/2020 9:48 AM RETAIL SALESMAN Sexual Orientation Choose not to disclose 2020 9:48 AM RETAIL SALESMAN documented as of this encounter Plan of Treatment Not on file documented as of this encounter Visit Diagnoses Not on filedocumented in this encounter Care Teams Cell Reliner Relationship Specialty Start Date End Date Alma Toth DO PCP - General 03/20/20 03/20/20 Ernst Lawton MD Tractor Mechanic Gastroenterology 02/06/20 Scott Riddle MD Surgeon Colon and Rectal Surgery 02/06/20 documented as of this encounter
--- OUTSIDE RECORDS SUMMARY | 2024-05-15 07:19 | XMS_ITS | Referral Summary ---
Author Organization [facility] Address [address] [place] [address] Care Team Providers Care Salvager Name Role Phone Ernst Lawton MD Unavailable [phone] Scott Riddle MD Unavailable Allergies Active Allergy Reactions Criticality Noted Date [...] 03/18/2020 Assessment & Plan (03/20/2020 11:03 AM NEW CAR GET READY MECHANIC): - IR c/s: CT scan, possible drain [...] (02/07/2020): Added automatically from request for surgery [id number] Immunizations Immunization Administration Dates Next Due Influenza, Unspecified 11/20/2019 Social History Tobacco Use Types Packs/Day Years [...] friends, or neighbors? Twice a week 03/18/19 21 How often do you get togethe r with friends or relatives? Twice a week 03/18/2020 How often do you attend [facility] or voodoo services? 1 to 4 times per year 03/18/2020 Do you belong to any clubs o r organizations such as spiritism groups, unions, fraternal or athletic groups, or [...] on file Legal Sex Female 12:19 AM NEW CAR GET READY MECHANIC Gender Identity Female 04/02/2020 9:48 AM NEW CAR GET READY MECHANIC Sexual Orientation Choose not to disclose 2020 9:48 AM NEW CAR GET READY MECHANIC Last Filed Vital Signs Vital Sign Reading Time Taken Comments Blood Pressure 94/61 04/09/2020 7:39 AM NEW CAR GET READY MECHANIC Pulse 88 04/09/2020 7:39 AM NEW CAR GET READY MECHANIC Temperature 36 C (96.8 F) 04/09/2020 7:39 AM NEW CAR GET READY MECHANIC Respiratory Rate 18 03/21/2020 9:28 AM NEW CAR GET READY MECHANIC Oxygen Saturation 94% 03/21/2020 9:28 AM NEW CAR GET READY MECHANIC Inhaled Oxygen Concentration - - Weight 78.6 kg (173 lb 3.2 oz) 04/09/2020 7:39 A M NEW CAR GET READY MECHANIC Height 161.3 cm (5' 3.5 ) 04/09/2020 7:39 AM NEW CAR GET READY MECHANIC Body Mass Index 30.2 04/09/2020 7:39 AM NEW CAR GET READY MECHANIC Plan of Treatment Not on file Insurance [employer] OOS [employer] Advance Directives For more information, please contact: [phone] * Full Code (Latest Code Status on File) Date Activated Date Inactivated Comments 03/18/2020 3:19 AM 03/21/2020 3:13 PM * Full Code Date Activated Date Inactivated Comments 02/24/2020 11:16 AM 02/26/2020 8:36 PM Care Teams Salvager Relationship Specialty Start Date End Date Ernst Lawton MD Core Composer Machine Tender Gastroenterology 02/06/20 Scott Riddle MD Surgeon Colon and Rectal Surgery 02/06/20
--- NOTE | 2024-05-15 07:24 | ECG_ITS ---
Test Date: 2024-05-15 07:32:10 Measurements Intervals [place] Rate: 94 P: 68 VT: 133 QRS: 38 QRSD: 77 T: 52 QT: 353 QTc: 441 Interpretive Statements SINUS RHYTHM POSSIBLE RIGHT VENTRICULAR CONDUCTION DELAY [RSR (QR) IN V1/V2] NONSPECIFIC ST AND T-WAVE ABNORMALITY ABNORMAL ECG No previous ECG available for comparison Electronically Signed On 05-15-2024 13:59:13 CDT by Renny Salcido M.D.
--- NOTE | 2024-05-15 07:55 | ED.SOB ---
HPI - SOB/Dyspnea General Chief Complaint: Shortness of Breath/Dyspnea Stated Complaint: headache, cough, congestion Time Seen by Provider: 05/15/24 07:36 Source: patient and family Mode of arrival: ambulatory Limitations: no limitations History of Present Illness HPI Narrative: Patient presents with report of shortness of breath. She has had fevers/chills, waking up sweating and then cold. ALso has a headache, cough, and congestion, semiproductive occasionally with green sputum. Symptoms started 05/11. Tried OTC mucinex. History of frequent acute bronchitis requiring an inhaler. Denies any other underlying respiratory conditions but does smoke 1 PPD (except not for the past several days). Denies chest pain but does describe a heaviness. No edema. Related Data Home Medications ?Medication ?Instructions ?Recorded ?Confirmed ?Last Taken ?Type cetirizine 10 mg tablet (Zyrtec) 10 mg PO HS 03/15/23 05/15/24 05/11/24 History hydroxychloroquine 100 mg tablet 100 mg PO HS 11/11/23 05/15/24 05/11/24 History simvastatin 10 mg tablet 10 mg PO QPM 05/15/24 05/15/24 05/11/24 History Allergies Allergy/AdvReac Type Severity Reaction Status Date / Time pseudoephedrine AdvReac Intermediate Dizziness Verified 05/15/24 13:52 [facility] Past Medical History Medical History (Updated 05/16/24 @ 08:01 by Kacie Brambila MD) Breast asymmetry Screening mammogram, encounter for Anxiety Depression PONV (postoperative nausea and vomiting) Hives of unknown origin Colonic mass Occult blood in stools GERD (gastroesophageal reflux disease) Thigh abscess High cholesterol Asthma Obesity Allergies Arthritis IBS (irritable bowel syndrome) Migraine Surgical History Surgical History History of gynecologic surgery (~1999) cryosurgery--abnormal cells History of bladder suspension procedure (05/17/17) History of endometrial ablation (~2007) hscope d&c/endometrial ablation History of dilation and curettage (~2007) hscope d&c/endometrial ablation Status post colectomy right colectomy 02/24/20 Abscess of right thigh H/O tubal ligation (~2005) Family History Family History Grandparent Diabetes mellitus Cerebrovascular accident Heart disease paternal grandfather Father Hypertension, Onset Age: 51 Family history of elevated blood lipids, Onset Age: 51 Acute myocardial infarction, Onset Age: 51 Family history of coronary artery disease, Onset Age: 51 Heart disease Mother Family history of rheumatoid arthritis Social History Social History Social History: Caffeine-tea Smoking packs per day: 1 Smoking cigarettes per day: 20.0 Years smoked: 15 Smoking pack-years: 15.00 Smoking status: Current every day smoker Tobacco type: cigarettes Second hand tobacco smoke exposure: Yes Additional smoking assessment comments: stopped when started feeling sick 05/12/24 Alcohol intake: never Alcohol use details: rare 2 x year Substance use: current Substance use type: marijuana Last use: 05/08/24 Do You Feel Safe in your Home?: Yes Lack of Transportation: No Lack of Food: Never True Current Housing: I Have Housing Concerned About Future Housing: No Difficulty Paying Gas/Electric Bills: No Difficulty Paying for Meds: No Currently Unemployed: No Education: Don't Know Difficulty w/ Childcare or Family Care: No Living arrangements: other Additional living arrangements comments: 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 HEAD: Normocephalic, atraumatic. EYES: Non injected, non icteric ENT: Nares clear, no rhinorrhea or epistaxis. NECK: Supple. CHEST: Speaking in full sentences. No respiratory distress. Nasal cannula in place. Bilateral end-expiratory wheezes though moving good air. HEART: Regular rate and rhythm. . ABDOMEN: Soft, nondistended. EXTREMITIES: Normal range of motion. No bilateral lower extremity edema. SKIN: Warm, dry, no rash. NEURO: No focal deficits. Alert and oriented x3. PSYCH: Normal mood and affect. Course Vital Signs Vital signs: Vital Signs Temperature 98.9 F 05/15/24 07:18 Pulse Rate 97 05/15/24 07:18 Respiratory Rate 19 05/15/24 07:18 Blood Pressure 150/78 H 05/15/24 07:18 Pulse Oximetry 92 05/15/24 07:18 Oxygen Delivery Room Air 05/15/24 07:18 Temperature 96.2 F L 05/16/24 04:35 Pulse Rate 87 05/16/24 04:35 Respiratory Rate 18 05/16/24 04:35 Blood Pressure 119/65 05/16/24 04:35 Pulse Oximetry 93 05/16/24 04:35 Oxygen Delivery Room Air 05/15/24 23:47 Oxygen Flow Rate 2 05/15/24 10:15 MDM - SOB/Dyspnea MDM Narrative Medical decision making narrative: Patient presents with shortness of breath, fevers/chills, headache, cough and congestion. Symptoms started 05/11. In the emergency department she is afebrile with vital signs notable for hypertension. She is also reportedly hypoxic at 92% air, nasal cannula applied at 2 liters/minute. Hypertension then resolves. Albuterol ordered given she has wheezes on exam. She tests positive for RSV. D-dimer within normal limits. Will not proceed with further CT imaging. Albuterol treatments x3 have been given the patient continues to desaturate when not on supplemental oxygen. Given this, she will require admission. Unclear whether transient/temporary need for O2 in [place] setting of RSV versus if possible underlying not yet diagnosed COPD given her smoking history and will possibly require home O2. Discussed with front desk manager hospitalist Dr Nevarez. Differential Diagnosis Differential diagnosis: Likely acute exacerbation of chronic obstructive airways disease (versus new diagnosis), community acquired pneumonia, asthma with exacerbation (versus new diagnosis), pulmonary embolism and other (acute viral syndrome; ) Lab Data Attestation: I reviewed the patient's lab results. Lab results narrative: No leukocytosis, anemia, thrombocytopenia. 05/15/24 07:44 05/15/24 07:44 Labs: Lab Results 05/15/24 Range/Units 07:44 WBC 7.2 (4.5-10.0) K/mm3 RBC 5.25 (4.2-5.4) M/mm3 Hgb 15.0 D (12.0-15.0) g/dL Hct 46.5 (37.0-47.0) % MCV 88.6 (80-100) fl MCH 28.6 (26-34) pg MCHC 32.3 (32-36) g/dl RDW 14.1 (11.5-14.5) % Plt Count 207 D (150-375) k/mm3 MPV 10.8 H (7.4-10.4) fl Immature Gran % (Auto) 0.3 (0-0.5) % Neut % (Auto) 72.3 (45.5-73.1) % Lymph % (Auto) 15.8 L (18.3-44.2) % [place] % (Auto) 10.6 H (2.6-8.5) % Eos % (Auto) 0.3 (0-4.4) % Baso % (Auto) 0.7 (0.2-1.2) % Lymph # (Auto) 1.14 (0.9-3.2) K/mm3 [place] # (Auto) 0.8 H (0.1-0.6) K/mm3 Eos # (Auto) 0.0 (0-0.3) K/mm3 Baso # (Auto) 0.1 (0.0-0.1) K/mm3 Abs Immat Gran (auto) 0.02 (0.00-0.031) K/mm3 Absolute Neuts (auto) 5.2 (1.3-6.7) K/mm3 Absolute Nucleated RBC 0.000 (0.0-0.012) K/mm3 Nucleated RBC % 0.0 (0.0-0.2) % D-Dimer 0.45 (<0.48) ug/mL Sodium 138 (137-145) mmol/L Potassium 3.8 (3.4-5.0) mmol/L Chloride 100 (98-107) mmol/L Carbon Dioxide 27 (22-30) mmol/L Anion Gap 11 (4-12) mmol/L BUN 6 L (7-17) mg/dL Creatinine 0.80 (0.7-1.0) mg/dL Estim Creat Clear Calc 70 ml/min Estimated GFR > 60 (59 - ) Glucose 112 H (65-110) mg/dL Calcium 9.0 (8.4-10.2) mg/dL Total Bilirubin 0.4 (0.2-1.3) mg/dL AST 26 (14-36) U/L ALT 20 (6-35) U/L Alkaline Phosphatase 125 (38-126) U/L Total Protein 8.0 (6.3-8.2) g/dL Albumin 4.2 (3.5-5.1) g/dL Influenza A (RT-PCR) Negative (Negative) Influenza B (RT-PCR) Negative (Negative) RSV (RT-PCR) Positive A (Negative) SARS-CoV-2 RNA (RT-PCR) Negative (Negative) Imaging Data Radiologist's impression: Impressions Chest X-Ray 05/15/24 08:59 IMPRESSION: 1: NO ACUTE CARDIOPULMONARY DISEASE. ECG Data EKG #1: Attestation: I personally reviewed and interpreted this ECG as follows: ECG completion date: 05/15/24 ECG completion time: 07:32 Interpretation: Normal sinus rhythm at a rate of 94 beats per minute KS interval 133. QRS 77. QT/QTC 353/4 4. Good R-wave progression across the precordial leads. No T-wave inversions other than in lead V3 which may be due to lead placement. Possible right ventricular conduction delay given the appearance of RSR M shaped appearance in V1 through V3. Discharge Plan Discharge Clinical Impression: Wheeze, Respiratory syncytial virus (RSV), Requires supplemental oxygen Patient Disposition: Still a Patient Condition: Stable
[2024-05-15 07:57] LABS: Basophils Absolute Auto 0.1 K/mm3 (0.0-0.1); Basophils Percent Auto 0.7 % (0.2-1.2); Eosinophils Percent Auto 0.3 % (0-4.4); Hematocrit 46.5 % (37.0-47.0); Immature Granulocyte Absolute 0.02 K/mm3 (0.00-0.031); Immature Granulocyte Percent A 0.3 % (0-0.5); Lymphocytes Absolute Auto 1.14 K/mm3 (0.9-3.2); Lymphocytes Percent Auto 15.8 % (18.3-44.2); Mean Corpuscular HGB Conc 32.3 g/dl (32-36); Mean Corpuscular Hemoglobin 28.6 pg (26-34); Mean Corpuscular Volume 88.6 fl (80-100); Mean Platelet Volume 10.8 fl (7.4-10.4); Monocytes Absolute Auto 0.8 K/mm3 (0.1-0.6); Monocytes Percent Auto 10.6 % (2.6-8.5); Neutrophils Absolute Auto 5.2 K/mm3 (1.3-6.7); Neutrophils Percent Auto 72.3 % (45.5-73.1); Platelet Count Result 207 k/mm3 (150-375); Red Blood Count 5.25 M/mm3 (4.2-5.4); Red Cell Distribution Width 14.1 % (11.5-14.5); White Blood Count 7.2 K/mm3 (4.5-10.0)
--- OUTSIDE RECORDS SUMMARY | 2024-05-15 08:06 | XMS_ITS | Clinical Summary ---
Author Organization [facility] Address [address] [place] [address] Care Team Providers Care Director Of Materials Name Role Phone Ernst Lawton MD Unavailable [phone] Scott Riddle MD Unavailable [phone] Allergies Active Allergy Reactions Criticality Noted [...] 03/18/2020 Assessment & Plan (03/20/2020 11:03 AM LOCKER OPERATOR): - IR c/s: CT scan, possible [...] (02/07/2020): Added automatically from request for surgery [id number] Immunizations Immunization Administration Dates Next Due Influenza, [...] often do you attend chur ch or moravian services? 1 to 4 times per year 03/18/2020 Do you belong to any clubs o r organizations such as jain groups, unions, fraternal or athletic groups, or [...] on file Legal Sex Female 12:19 AM LOCKER OPERATOR Gender Identity Female 04/02/2020 9:48 AM LOCKER OPERATOR Sexual Orientation Choose not to disclose 2020 9:48 AM LOCKER OPERATOR Obstetrics History Last Filed Vital Signs Vital Sign Reading Time Taken Comments Blood Pressure 94/61 04/09/2020 7:39 AM LOCKER OPERATOR Pulse 88 04/09/2020 7:39 AM LOCKER OPERATOR Temperature 36 C (96.8 F) 04/09/2020 7:39 AM LOCKER OPERATOR Respiratory Rate 18 03/21/2020 9:28 AM LOCKER OPERATOR Oxygen Saturation 94% 03/21/2020 9:28 AM LOCKER OPERATOR Inhaled Oxygen Concentration - - Weight 78.6 kg (173 lb 3.2 oz) 04/09/2020 7:39 A M LOCKER OPERATOR Height 161.3 cm (5' 3.5 ) 04/09/2020 7:39 AM LOCKER OPERATOR Body Mass Index 30.2 04/09/2020 7:39 AM LOCKER OPERATOR Plan of Treatment Health Maintenance Due Date [...] Influenza Vaccine (#1) 2023 11/28/2019, 2019 Insurance [employer] OOS [employer] ACCESS OOS [facility] Address: [facility] [id number] [place] [address] Advance Directives For more information, please contact: [phone] * Full Code (Latest Code Status on File) Date Activated Date Inactivated Comments 03/18/2020 3:19 AM 03/21/2020 3:13 PM * Full Code Date Activated Date Inactivated Comments 02/24/2020 11:16 AM 02/26/2020 8:36 PM Care Teams Director Of Materials Relationship Specialty Start Date End Date Ernst Lawton MD Research Recruiter Gastroenterology 02/06/20 Scott Riddle MD Surgeon Colon and Rectal Surgery 02/06/20
--- OUTSIDE RECORDS SUMMARY | 2024-05-15 08:06 | XMS_ITS | Referral Summary ---
Author Organization [facility] Address [address] [place] [address] Care Team Providers Care Cancer Researcher Name Role Phone Ernst Lawton MD Unavailable [phone] Scott Riddle MD Unavailable [phone] Allergies Active Allergy Reactions Criticality Noted [...] 03/18/2020 Assessment & Plan (03/20/2020 11:03 AM GLASS BULB SILVERER): - IR c/s: CT scan, possible drain [...] (02/07/2020): Added automatically from request for surgery [id number] Immunizations Immunization Administration Dates Next Due Influenza, [...] week 03/18/2020 How often do you attend [facility] or orthodox services? 1 to 4 times per year 03/18/2020 Do you belong to any clubs o r organizations such as muslim groups, unions, fraternal or athletic groups, or [...] on file Legal Sex Female 12:19 AM GLASS BULB SILVERER Gender Identity Female 04/02/2020 9:48 AM GLASS BULB SILVERER Sexual Orientation Choose not to disclose 2020 9:48 AM GLASS BULB SILVERER Last Filed Vital Signs Vital Sign Reading Time Taken Comments Blood Pressure 94/61 04/09/2020 7:39 AM GLASS BULB SILVERER Pulse 88 04/09/2020 7:39 AM GLASS BULB SILVERER Temperature 36 C (96.8 F) 04/09/2020 7:39 AM GLASS BULB SILVERER Respiratory Rate 18 03/21/2020 9:28 AM GLASS BULB SILVERER Oxygen Saturation 94% 03/21/2020 9:28 AM GLASS BULB SILVERER Inhaled Oxygen Concentration - - Weight 78.6 kg (173 lb 3.2 oz) 04/09/2020 7:39 A M GLASS BULB SILVERER Height 161.3 cm (5' 3.5 ) 04/09/2020 7:39 AM GLASS BULB SILVERER Body Mass Index 30.2 04/09/2020 7:39 AM GLASS BULB SILVERER Plan of Treatment Not on file Insurance [employer] OOS [employer] Advance Directives For more information, please contact: [phone] * Full Code (Latest Code Status on File) Date Activated Date Inactivated Comments 03/18/2020 3:19 AM 03/21/2020 3:13 PM * Full Code Date Activated Date Inactivated Comments 02/24/2020 11:16 AM 02/26/2020 8:36 PM Care Teams Cancer Researcher Relationship Specialty Start Date End Date Ernst Lawton MD Fire Crew Worker Gastroenterology 02/06/20 Scott Riddle MD Surgeon Colon and Rectal Surgery 02/06/20
--- OUTSIDE RECORDS SUMMARY | 2024-05-15 08:06 | XMS_ITS | Encounter Summary ---
Author Organization [facility] Address [address] [place] [address] Care Team Providers Care Gear Hobber Name Role Phone Ernst Lawton MD Unavailable [phone] Scott Riddle MD Unavailable Alma Toth DO Primary Care Provider [phone] Encounter Details Date Type Department Care Team (Late st Contact Info) Description 03/20/2020 Telephone [facility] Radiology [address] [place] [address] Janelle Lin RN Social History Tobacco Use [...] often do you attend chur ch or zoroastrian services? 1 to 4 times per year 03/18/2020 Do you belong to any clubs o r organizations such as gnosticist groups, unions, fraternal or athletic groups, or [...] on file Legal Sex Female 12:19 AM ABSTRACT CHECKER Gender Identity Female 04/02/2020 9:48 AM ABSTRACT CHECKER Sexual Orientation Choose not to disclose 2020 9:48 AM ABSTRACT CHECKER documented as of this encounter Plan of Treatment Not on file documented as of this encounter Visit Diagnoses Not on filedocumented in this encounter Care Teams Gear Hobber Relationship Specialty Start Date End Date Alma Toth DO PCP - General 03/20/20 03/20/20 Ernst Lawton MD Information Technology Director Gastroenterology 02/06/20 Scott Riddle MD Surgeon Colon and Rectal Surgery 02/06/20 documented as of this encounter
--- OUTSIDE RECORDS SUMMARY | 2024-05-15 08:06 | XMS_ITS ---
Author Organization [facility] Address [address] [place] [address] Care Team Providers Care Manager Location Name Role Phone Ernst Lawton MD Unavailable [phone] Scott Riddle MD Unavailable [phone] Active Problems Problem Noted Date Diagnosed Date Angio-edema 09/16/2020 Urticaria, chronic 09/16/2020 Chronic arthralgias of knees and hips 09/16/2020 Colon polyp 04/09/2020 Intra-abdominal abscess 03/18/2020 Assessment & Plan (03/20/2020 11:03 AM REBAR WORKER): - IR c/s: CT scan, possible drain [...] (02/07/2020): Added automatically from request for surgery [id number]
[2024-05-15 08:10] LABS: Alanine Aminotransferase 20 U/L (6-35); Albumin Level 4.2 g/dL (3.5-5.1); Alkaline Phosphatase 125 U/L (38-126); Anion Gap 11 mmol/L (4-12); Aspartate Amino Transferase 26 U/L (14-36); Bilirubin,Total 0.4 mg/dL (0.2-1.3); Blood Urea Nitrogen 6 mg/dL (7-17); Carbon Dioxide 27 mmol/L (22-30); Chloride 100 mmol/L (98-107); Estimated CRCL calculation 70 ml/min; Estimated Glomerular Filt Rate > 60; Glucose 112 mg/dL (65-110); Potassium 3.8 mmol/L (3.4-5.0); Sodium 138 mmol/L (137-145)
[2024-05-15] MEDS: ALBUTEROL SULFATE NEB 2.5 MG/3 ML INH INHALATION ×3 (08:15→10:15)
[2024-05-15 08:27] LABS: Influenza A QL RT-PCR Negative (Negative); Influenza B QL RT-PCR Negative (Negative); RSV RNA, RT-PCR Positive (Negative); SARS-CoV-2 RNA PCR Negative (Negative)
[2024-05-15 09:26] LABS: D Dimer 0.45 ug/mL (<0.48)
[2024-05-15] MEDS: ACETAMINOPHEN 500 MG TABLET 1000 MG PO (10:06)
[2024-05-15] MEDS: KETOROLAC 15 MG/ML VIAL (*BKC) IV PUSH (10:07)
--- NOTE | 2024-05-15 10:27 | PC.NURSE ---
EDP gave verbal order to trial pt off O2
--- NOTE | 2024-05-15 10:38 | PC.NURSE ---
Pt trialed off O2, pt oxygen desatted to 87-88% on room air, pt placed back on 2L NC. EDP made aware.
--- OUTSIDE RECORDS SUMMARY | 2024-05-15 13:25 | XMS_ITS | Clinical Summary ---
Author Organization [facility] Address [address] [place] [address] Care Team Providers Care Associate Financial Analyst Name Role Phone Ernst Lawton MD Unavailable [phone] Scott Riddle MD Unavailable Allergies Active [...] 03/18/2020 Assessment & Plan (03/20/2020 11:03 AM COAT OPERATOR): - IR c/s: CT scan, possible [...] (02/07/2020): Added automatically from request for surgery [id number] Immunizations Immunization Administration Dates Next Due Influenza, [...] often do you attend chur ch or orthodoxy services? 1 to 4 times per year 03/18/2020 Do you belong to any clubs o r organizations such as voodoo groups, unions, fraternal or athletic groups, or [...] on file Legal Sex Female 12:19 AM COAT OPERATOR Gender Identity Female 04/02/2020 9:48 AM COAT OPERATOR Sexual Orientation Choose not to disclose 2020 9:48 AM COAT OPERATOR Obstetrics History Last Filed Vital Signs Vital Sign Reading Time Taken Comments Blood Pressure 94/61 04/09/2020 7:39 AM COAT OPERATOR Pulse 88 04/09/2020 7:39 AM COAT OPERATOR Temperature 36 C (96.8 F) 04/09/2020 7:39 AM COAT OPERATOR Respiratory Rate 18 03/21/2020 9:28 AM COAT OPERATOR Oxygen Saturation 94% 03/21/2020 9:28 AM COAT OPERATOR Inhaled Oxygen Concentration - - Weight 78.6 kg (173 lb 3.2 oz) 04/09/2020 7:39 A M COAT OPERATOR Height 161.3 cm (5' 3.5 ) 04/09/2020 7:39 AM COAT OPERATOR Body Mass Index 30.2 04/09/2020 7:39 AM COAT OPERATOR Plan of Treatment Health Maintenance Due [...] Influenza Vaccine (#1) 2023 11/28/2019, 2019 Insurance [employer] O[employer] ACCESS OOS Advance Directives For more information, please contact: [phone] * Full Code (Latest Code Status on File) Date Activated Date Inactivated Comments 03/18/2020 3:19 AM 03/21/2020 3:13 PM * Full Code Date Activated Date Inactivated Comments 02/24/2020 11:16 AM 02/26/2020 8:36 PM Care Teams Associate Financial Analyst Relationship Specialty Start Date End Date Ernst Lawton MD Culinary Instructor Gastroenterology 02/06/20 Scott Riddle MD Surgeon Colon and Rectal Surgery 02/06/20
--- OUTSIDE RECORDS SUMMARY | 2024-05-15 13:25 | XMS_ITS ---
Author Organization [facility] Address [address] [place] [address] Care Team Providers Care Instant Printer Operator Name Role Phone Ernst Lawton MD Unavailable [phone] Scott Riddle MD Unavailable [phone] Active Problems Problem Noted Date Diagnosed Date Angio-edema 09/16/2020 Urticaria, chronic 09/16/2020 Chronic arthralgias of knees and hips 09/16/2020 Colon polyp 04/09/2020 Intra-abdominal abscess 03/18/2020 Assessment & Plan (03/20/2020 11:03 AM APPLICATION PROGRAMMER ANALYST): - IR c/s: CT scan, possible drain [...] (02/07/2020): Added automatically from request for surgery [id number]
--- OUTSIDE RECORDS SUMMARY | 2024-05-15 13:26 | XMS_ITS | Referral Summary ---
Author Organization [facility] Address [address] [place] [address] Care Team Providers Care Wearing Apparel Shaker Name Role Phone Ernst Lawton MD Unavailable [phone] Scott Riddle MD Unavailable [phone] Allergies Active Allergy Reactions Criticality Noted [...] 03/18/2020 Assessment & Plan (03/20/2020 11:03 AM TURRET LATHE TENDER): - IR c/s: CT scan, possible drain [...] (02/07/2020): Added automatically from request for surgery [id number] Immunizations Immunization Administration Dates Next Due Influenza, [...] week 03/18/2020 How often do you attend [facility] or episcopal services? 1 to 4 times per year 03/18/2020 Do you belong to any clubs o r organizations such as yazdanism groups, unions, fraternal or athletic groups, or [...] on file Legal Sex Female 12:19 AM TURRET LATHE TENDER Gender Identity Female 04/02/2020 9:48 AM TURRET LATHE TENDER Sexual Orientation Choose not to disclose 2020 9:48 AM TURRET LATHE TENDER Last Filed Vital Signs Vital Sign Reading Time Taken Comments Blood Pressure 94/61 04/09/2020 7:39 AM TURRET LATHE TENDER Pulse 88 04/09/2020 7:39 AM TURRET LATHE TENDER Temperature 36 C (96.8 F) 04/09/2020 7:39 AM TURRET LATHE TENDER Respiratory Rate 18 03/21/2020 9:28 AM TURRET LATHE TENDER Oxygen Saturation 94% 03/21/2020 9:28 AM TURRET LATHE TENDER Inhaled Oxygen Concentration - - Weight 78.6 kg (173 lb 3.2 oz) 04/09/2020 7:39 A M TURRET LATHE TENDER Height 161.3 cm (5' 3.5 ) 04/09/2020 7:39 AM TURRET LATHE TENDER Body Mass Index 30.2 04/09/2020 7:39 AM TURRET LATHE TENDER Plan of Treatment Not on file Insurance [employer] OOS [employer] O[employer] Advance Directives For more information, please contact: [phone] * Full Code (Latest Code Status on File) Date Activated Date Inactivated Comments 03/18/2020 3:19 AM 03/21/2020 3:13 PM * Full Code Date Activated Date Inactivated Comments 02/24/2020 11:16 AM 02/26/2020 8:36 PM Care Teams Wearing Apparel Shaker Relationship Specialty Start Date End Date Ersnt Lawton MD Healthcare Corporate Account Director Gastroenterology 02/06/20 Scott Riddle MD Surgeon Colon and Rectal Surgery 02/06/20
--- OUTSIDE RECORDS SUMMARY | 2024-05-15 13:26 | XMS_ITS | Encounter Summary ---
Author Organization [facility] Healthcare Address [address] [place] [address] Care Team Providers Care Refinery Operator Light Ends Recovery Name Role Phone Ernst Lawton MD Unavailable [phone] Scott Riddle MD Unavailable [phone] Alma Toth DO Primary Care Provider [phone] Encounter Details Date Type Department Care Team (Late st Contact Info) Description 03/20/2020 Telephone [facility] Radiology [address] [place] [address] Janelle Lin RN Social History Tobacco Use [...] often do you attend chur ch or church services? 1 to 4 times per year 03/18/2020 Do you belong to any clubs o r organizations such as lutheran groups, unions, fraternal or athletic groups, or [...] on file Legal Sex Female 12:19 AM RACE RELATIONS PROFESSOR Gender Identity Female 04/02/2020 9:48 AM RACE RELATIONS PROFESSOR Sexual Orientation Choose not to disclose 2020 9:48 AM RACE RELATIONS PROFESSOR documented as of this encounter Plan of Treatment Not on file documented as of this encounter Visit Diagnoses Not on filedocumented in this encounter Care Teams Refinery Operator Light Ends Recovery Relationship Specialty Start Date End Date Alma Toth DO PCP - General 03/20/20 03/20/20 Ernst Lawton MD Special Events Assistant Gastroenterology 02/06/20 Scott Riddle MD Surgeon Colon and Rectal Surgery 02/06/20 documented as of this encounter
--- NOTE | 2024-05-15 13:38 | ADMGEN ---
This patient, Mag Thurston, was admitted to 3 [facility] Surg Room 310-01. Patient/family oriented to hospital policies and general routines including ID bracelet, bed and alarms, visiting hours, pain management, procedures, bathroom and other care routines, personal items, smoking policy, room service/diet, and visiting hours. Information on how to activate the Rapid Response Team has been discussed. Patient/Family are encouraged to report perceived risks to care and to ask questions if they do not understand what they are told or what they should do. Report from Jessica.
--- NOTE | 2024-05-15 13:46 | PM.IMHP ---
H&P: [facility] History of Present Illness Date/Time: 05/15/24 13:46 Chief Complaint: Shortness of Breath/Dyspnea Narrative: Ms. Hathaway is a 53-year-old with a past medical history hidradenitis supprative, anxiety, asthma, colonic mass, depression, IBS, thigh abscess who visited ER due to shortness of breath. In the ED patient had episodes of desaturate and patient was placed on nasal cannula. Currently patient is saturating on 93% at 2 L. she does not wear any nasal oxygen at home. Patient has a extensive smoking history 1 pack per day. Patient reports a history of asthma and I believe patient has a component of COPD as well. D-dimer was performed in ED which was negative. Chest x-ray shows no acute cardiopulmonary disease Pertinent ED labs: Hemoglobin 15, hematocrit 46.5, platelet 207, sodium 138, potassium 3.8, creatinine 0.8 Positive for RSV Patient is admitted in the setting of PNA due to RSV. Patient also has a underlying seasonal allergies. Review of Systems Review of Systems: As mentioned in the HPI [facility] Past Medical History Medical History Breast asymmetry Screening mammogram, encounter for Anxiety Depression PONV (postoperative nausea and vomiting) Hives of unknown origin Colonic mass Occult blood in stools GERD (gastroesophageal reflux disease) Thigh abscess High cholesterol Asthma Obesity Allergies Arthritis IBS (irritable bowel syndrome) Migraine Surgical History Surgical History History of gynecologic surgery (~1999) cryosurgery--abnormal cells History of bladder suspension procedure (05/17/17) History of endometrial ablation (~2007) hscope d&c/endometrial ablation History of dilation and curettage (~2007) hscope d&c/endometrial ablation Status post colectomy right colectomy 02/24/20 Abscess of right thigh H/O tubal ligation (~2005) Family History Family History Grandparent Diabetes mellitus Cerebrovascular accident Heart disease paternal grandfather Father Hypertension, Onset Age: 51 Family history of elevated blood lipids, Onset Age: 51 Acute myocardial infarction, Onset Age: 51 Family history of coronary artery disease, Onset Age: 51 Heart disease Mother Family history of rheumatoid arthritis Social History Social History Social History: Caffeine-tea Smoking packs per day: 1 Smoking cigarettes per day: 20.0 Years smoked: 15 Smoking pack-years: 15.00 Smoking status: Current every day smoker Tobacco type: cigarettes Second hand tobacco smoke exposure: Yes Alcohol intake: never Alcohol use details: rare 2 x year Substance use: current Substance use type: marijuana Last use: 05/08/24 Do You Feel Safe in your Home?: Yes Lack of Transportation: No Lack of Food: Never True Current Housing: I Have Housing Concerned About Future Housing: No Difficulty Paying Gas/Electric Bills: No Difficulty Paying for Meds: No Currently Unemployed: No Education: Don't Know Difficulty w/ Childcare or Family Care: No Living arrangements: other Additional living arrangements comments: 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/Education: occupation 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 Gender identity (if verbalized by the patient): Female Sexual Orientation (if Verbalized by the Patient): Straight or Heterosexual Spiritual care concerns: No Meds Home Medications and Allergies Home Medications ?Medication ?Instructions ?Recorded ?Confirmed ?Type inhalational spacing device #1 ea 08/30/20 12/15/23 Rx (Aerochamber with Flowsignal) albuterol sulfate 90 mcg/actuation 2 puff inhalation QID PRN 10/07/20 05/15/24 Rx aerosol inhaler shortness of breath or wheezing #8.5 grams cetirizine 10 mg tablet (Zyrtec) 10 mg PO HS 03/15/23 05/15/24 History hydroxychloroquine 100 mg tablet 100 mg PO HS 11/11/23 05/15/24 History meloxicam 15 mg tablet 15 mg PO DAILY #90 tabs 05/11/24 05/15/24 Rx simvastatin 10 mg tablet 10 mg PO QPM 05/15/24 05/15/24 History Allergies Allergy/AdvReac Type Severity Reaction Status Date / Time pseudoephedrine AdvReac Intermediate Dizziness Verified 05/15/24 13:52 Vital Signs Vital Signs - 24 hr 05/15/24 07:18 05/15/24 07:35 05/15/24 07:35 Temperature 98.9 F Pulse Rate 97 92 Respiratory Rate 19 Blood Pressure 150/78 H Pulse Oximetry 92 94 Oxygen Delivery Room Air Nasal Cannula Oxygen Flow Rate 2 05/15/24 07:35 05/15/24 07:35 05/15/24 08:15 Temperature Pulse Rate 92 86 Respiratory Rate 19 20 Blood Pressure 124/76 Pulse Oximetry 94 96 Oxygen Delivery Nasal Cannula Oxygen Flow Rate 2 05/15/24 08:23 05/15/24 09:29 05/15/24 09:36 Temperature Pulse Rate 90 83 81 Respiratory Rate 20 18 20 Blood Pressure Pulse Oximetry Oxygen Delivery Oxygen Flow Rate 05/15/24 10:08 05/15/24 10:15 05/15/24 10:15 Temperature Pulse Rate 91 87 Respiratory Rate 16 18 Blood Pressure 105/69 Pulse Oximetry 95 96 Oxygen Delivery Nasal Cannula Oxygen Flow Rate 2 05/15/24 10:23 05/15/24 10:36 05/15/24 12:31 Temperature Pulse Rate 88 89 84 Respiratory Rate 18 15 Blood Pressure 108/63 Pulse Oximetry 94 93 Oxygen Delivery Oxygen Flow Rate Exam Narrative: GENERAL: Well-appearing, well-nourished, and in no acute distress. HEAD: Normocephalic, atraumatic. EYES: Non injected, non icteric ENT: Nares clear, no rhinorrhea or epistaxis. NECK: Supple. CHEST: Speaking in full sentences. No respiratory distress. Nasal cannula in place. Bilateral end-expiratory wheezes though moving good air. HEART: Regular rate and rhythm. . ABDOMEN: Soft, nondistended. EXTREMITIES: Normal range of motion. No bilateral lower extremity edema. SKIN: Warm, dry, no rash. NEURO: No focal deficits. Alert and oriented x3. PSYCH: Normal mood and affect. H&P: Results Labs Labs: Short CBC 05/15/24 Range/Units 07:44 WBC 7.2 (4.5-10.0) K/mm3 Hgb 15.0 D (12.0-15.0) g/dL Hct 46.5 (37.0-47.0) % Plt Count 207 D (150-375) k/mm3 BMP 05/15/24 07:44 Sodium 138 Potassium 3.8 Chloride 100 Carbon Dioxide 27 BUN 6 L Creatinine 0.80 Glucose 112 H Calcium 9.0 Liver Function 05/15/24 Range/Units 07:44 Total Bilirubin 0.4 (0.2-1.3) mg/dL AST 26 (14-36) U/L ALT 20 (6-35) U/L Alkaline Phosphatase 125 (38-126) U/L Albumin 4.2 (3.5-5.1) g/dL Assessment and Plan Assessment and plan (1) Mixed hyperlipidemia: Code(s): E78.2 - Mixed hyperlipidemia Status: Chronic (2) Obesity: Code(s): E66.9 - Obesity, unspecified Status: Chronic (3) SONY (iron deficiency anemia): Code(s): D50.9 - Iron deficiency anemia, unspecified Status: Acute (4) Respiratory syncytial virus (RSV): Code(s): B33.8 - Other specified viral diseases Status: Acute Plan PNA 2/2 RSV Vital signs improved and stable Consider Amox- clav and azithromycin for possible secondary bacterial infection Pending respiratory pathogen, Legionella and pneumococcus monitor cultures MRSA pending encourage oral intake Symptomatic treatment for RSV Prednisone 40 mg p.o. q.d. for 3 days DuoNeb q.6 hours Consult pulmonology if necessary Hyperlipidemia Continue simvastatin 10 mg Code: Full code DVT prophylaxis: Lovenox 40 mg subcutaneous Hospitalist MIPS Advance Care Plan I have confirmed that the patient's Advanced Care Plan is present, code status is documented, or surrogate decision maker is listed in patient medical record.: Yes Medication Reconciliation I have utilized all available resources to obtain, update and review the patients current medications (includes all prescriptions, OTC, herbals, cannabis, and nutritional supplements).: Yes
[2024-05-15 15:30] LABS: MRSA (PCR) NOT DETECTED (NOT DETECTE)
[2024-05-15] MEDS: BENZOCAINE/MENTHOL (*BKC) 18 EA LOZENGE 1 LOZENGE PO (17:01)
[2024-05-15] MEDS: predniSONE 20 MG TABLET 40 MG PO (17:02)
[2024-05-15] MEDS: HYDROXYCHLOROQUINE SULFATE 100 MG TABLET PO (21:00)
[2024-05-15] MEDS: SIMVASTATIN 10 MG TABLET PO (21:00)
[2024-05-15] MEDS: IPRATROPIUM 0.5 MG/ALBUTEROL SULFATE 2.5 MG AMPUL.NEB 3 ML INHALATION (23:42)
[2024-05-16] MEDS: IPRATROPIUM 0.5 MG/ALBUTEROL SULFATE 2.5 MG AMPUL.NEB 3 ML INHALATION ×2 (02:03→08:00)
[2024-05-16 02:05] VITALS: PULSE 75; RESP 18
[2024-05-16 02:14] VITALS: PULSE 76; RESP 18
[2024-05-16 04:35] VITALS: BP 119/65; PULSE 87; RESP 18; TEMP 35.7; O2SAT 93
[2024-05-16 08:02] VITALS: PULSE 86; RESP 20; O2SAT 93
[2024-05-16 08:24] VITALS: PULSE 84; RESP 20
[2024-05-16] MEDS: predniSONE 20 MG TABLET 40 MG PO (08:43)
--- NOTE | 2024-05-16 10:05 | PC.NURSE ---
rt refused lovenox this am, pt also refused claritin, stating she takes zyrtec. pt refusing morning labs. pt states she wants to go home. pt educated on importance of these meds and labs. pt still refuses
[2024-05-16 14:00] VITALS: BP 130/78; PULSE 85; RESP 20; TEMP 36.4; O2SAT 92
--- NOTE | 2024-05-16 14:41 | P.DS_ITS ---
DS: Admitting Diagnosis Discharge Date 05/16/24 Admitting Diagnosis Shortness of Breath/Dyspnea DS: Discharge Diagnosis Discharge Diagnosis (1) Respiratory syncytial virus (RSV): Code(s): B33.8 - Other specified viral diseases Status: Acute (2) Requires supplemental oxygen: Code(s): Z99.81 - Dependence on supplemental oxygen Status: Acute DS: Summary Hospital Course Hospital Course: Ms. Hathaway is a 53-year-old with a past medical history hidradenitis supprative, anxiety, asthma, colonic mass, depression, IBS, thigh abscess who visited ER due to shortness of breath. In the ED patient had episodes of desaturate and patient was placed on nasal cannula. Currently patient is saturating on 93% at 2 L. she does not wear any nasal oxygen at home. Patient has a extensive smoking history 1 pack per day. Patient reports a history of asthma and I believe patient has a component of COPD as well. D-dimer was performed in ED which was negative. Chest x-ray shows no acute cardiopulmonary disease Pertinent ED labs: Hemoglobin 15, hematocrit 46.5, platelet 207, sodium 138, potassium 3.8, creatinine 0.8 Positive for RSV Patient required oxygen on admission however she is currently on room air. Discharged on Prednisone 3 days, Azithromycin 250mg xx 4 days and Combivent for PRN wheezing. F/u with PCP in 3-5 days Time Spent with Patient Time attestation: Total time spent providing and/or coordinating discharge services: DS: Data Data Completed and Pending Labs on day of discharge: Labs from last 24 hours 05/15/24 05/15/24 15:19 14:07 Nasal MRSA (PCR) Not detected M. pneumoniae Source Pending M.pneumoniae DNA (PCR) Pending Urine Pneumococcal Ag Pending Discharge Plan Discharge Attending physician on discharge: Ismael Jeter Discharging Clinician: Ismael Jeter Anticipated Discharge Date/Time: 05/16/24 14:35 Patient Disposition: Home, Self-Care Activity: as tolerated Diet: regular Patient Instructions: Antibiotic Form Patient Language: Congolese Stand Alone Forms: General Discharge Information Follow-up/Referrals: Alma Toth DO [Primary Care Provider] - (F/u with PCP in 3-5 days ) Discharge Medications: New prednisone 20 mg Tablet 40 mg PO DAILY@0800 3 Days Qty: 6 0RF azithromycin 250 mg tablet 250 mg PO DAILY 120 Days Qty: 120 0RF Combivent Respimat 20-100 mcg/actuation mist 1 puff inhalation Q4H PRN (Reason: shortness of breath or wheezing) Qty: 4 0RF Continued (DME) Aerochamber with Flowsignal Spacer See Rx Instructions .ROUTE .MEDSUPPLY Qty: 1 0RF Rx Instructions: As directed cetirizine [Zyrtec] 10 mg tablet 10 mg PO HS hydroxychloroquine 100 mg tablet 100 mg PO HS meloxicam 15 mg tablet 15 mg PO DAILY Qty: 90 1RF Patient Comments: Pt states she has not picked this medication up yet simvastatin 10 mg tablet 10 mg PO QPM Rx Instructions: TAKE 1 TABLET BY MOUTH DAILY albuterol sulfate 90 mcg/actuation HFA aerosol inhaler 2 puff inhalation QID PRN (Reason: shortness of breath or wheezing) Qty: 8.5 4RF Date of admission: 05/15/24 13:10 Primary Care Provider: Alma Toth Admitting Provider: Michael Lewis Attending physician on admission: Ismael Jeter Condition: Stable
[2024-05-18 14:19] LABS: Pneumococcal Antigen Urine NOT DETECTED
[2024-05-19 01:53] LABS: Adenovirus DNA Not Detected (Not Detected); Chlamydophila pneumoniae Not Detected (Not Detected); Coronavirus 229E Not Detected (Not Detected); Coronavirus HKU1 Not Detected (Not Detected); Coronavirus NL63 Not Detected (Not Detected); Coronavirus OC43 Not Detected (Not Detected); Human Metapneumovirus Not Detected (Not Detected); Human Parainfluenza Virus 1 Not Detected (Not Detected); Human Parainfluenza Virus 2 Not Detected (Not Detected); Human Parainfluenza Virus 3 Not Detected (Not Detected); Human Parainfluenza Virus 4 Not Detected (Not Detected); Human RSV B Not Detected (Not Detected); Influenza A Not Detected (Not Detected); Influenza B Not Detected (Not Detected); Mycoplasma pneumoniae Not Detected (Not Detected); Rhinovirus/Enterovirus Not Detected (Not Detected)
== END 2024-05-16 14:45 | disposition home or self-care (01) | DRG 194 ==
LOC: ANHED 08:07 → ANH3MEDSUR 12:15
PROVIDERS: Admitting Provider General Practice; Emergency Provider Student in an Organized Health Care Education/Training Program; PCP Family Medicine; Visit Provider Internal Medicine
DX: J12.1 Respiratory syncytial virus pneumonia (principal); J44.0 Chronic obstructive pulmonary disease with (acute) lower respiratory infection; K21.9 Gastro-esophageal reflux disease without esophagitis; K58.9 Irritable bowel syndrome, unspecified; F17.210 Nicotine dependence, cigarettes, uncomplicated; E78.2 Mixed hyperlipidemia; E66.9 Obesity, unspecified; D50.9 Iron deficiency anemia, unspecified; Z68.31 Body mass index [BMI] 31.0-31.9, adult; F41.9 Anxiety disorder, unspecified
CPT/HCPCS: 36415; 71046; 80053; 85025; 85380; 87581; 87633; 87637; 87641; 87899; 93005; 94640; 96374; 96375; 99285; A9270; G0378; J1885; J7512

== ENCOUNTER 2024-06-19 07:29 | Outpatient (CLI) | payer BC, SELFPAY ==
--- NOTE | ~2024-06-19 | MM_ITS ---
EXAMINATION: MM screening eli BI w armando HISTORY: Screening TECHNIQUE: Craniocaudal and mediolateral oblique 3-D tomosynthesis images were obtained and synthetic 2-D images were generated. CAD analysis was submitted and interpreted. COMPARISON: No prior mammogram is available for comparison at this institution. BREAST PARENCHYMAL COMPOSITION: FINDINGS: There is no evidence of suspicious mass, calcification, or architectural distortion to sugg est malignancy in either breast. There has been no suspicious interval change. IMPRESSION: 1. No mammographic evidence of malignancy. 2. Recommend routine screening mammography in one year. BI-RADS Category 1: Negative Reviewed, dictated and finalized at location A.
--- OUTSIDE RECORDS SUMMARY | 2024-06-19 07:36 | XMS_ITS | Encounter Summary ---
Author Organization [facility] Healthcare Address [address] [place] [address] Care Team Providers Care Parts Salvager Name Role Phone Ernst Lawton MD Unavailable [phone] Scott Riddle MD Unavailable [phone] Alma Toth DO Primary Care Provider [phone] Encounter Details Date Type Department Care Team (Late st Contact Info) Description 03/20/2020 Telephone [facility] Radiology [address] [place] [address] Janelle Lin RN Social History Tobacco Use Types Packs/Day Years Used Date Smoking Tobacco: Every Day Cigarettes 1 35.3 Started: 1989 Smokeless Tobacco: Never Comments:on/ off [...] often do you attend chur ch or restoration services? 1 to 4 times per year 03/18/2020 Do you belong to any clubs o r organizations such as taoism groups, unions, fraternal or athletic groups, or [...] on file Legal Sex Female 12:19 AM DIRECTOR OF COMMUNITY EDUCATION Gender Identity Female 04/02/2020 9:48 AM DIRECTOR OF COMMUNITY EDUCATION Sexual Orientation Choose not to disclose 2020 9:48 AM DIRECTOR OF COMMUNITY EDUCATION documented as of this encounter Plan of Treatment Not on file documented as of this encounter Visit Diagnoses Not on filedocumented in this encounter Care Teams Parts Salvager Relationship Specialty Start Date End Date Alma Toth DO PCP - General 03/20/20 03/20/20 Ernst Lawton MD Termite Control Servicer Gastroenterology 02/06/20 Scott Riddle MD Surgeon Colon and Rectal Surgery 02/06/20 documented as of this encounter
--- OUTSIDE RECORDS SUMMARY | 2024-06-19 07:36 | XMS_ITS ---
Author Organization [facility] Address [address] [place] [address] Care Team Providers Care Data Warehouse Developer Name Role Phone Ernst Lawton MD Unavailable [phone] Scott Riddle MD Unavailable [phone] Active Problems Problem Noted Date Diagnosed Date Angio-edema 09/16/2020 Urticaria, chronic 09/16/2020 Chronic arthralgias of knees and hips 09/16/2020 Colon polyp 04/09/2020 Intra-abdominal abscess 03/18/2020 Assessment & Plan (03/20/2020 11:03 AM SEO COORDINATOR): - IR c/s: CT scan, possible drain [...] (02/07/2020): Added automatically from request for surgery [id number]
--- OUTSIDE RECORDS SUMMARY | 2024-06-19 07:36 | XMS_ITS | Referral Summary ---
Author Organization [facility] Address [address] [place] [address] Care Team Providers Care Landing Gear Mechanic Name Role Phone Ernst Lawton MD Unavailable [phone] Scott Riddle MD Unavailable [phone] Allergies Active Allergy Reactions Criticality Noted [...] 03/18/2020 Assessment & Plan (03/20/2020 11:03 AM SHAPER SET UP OPERATOR): - IR c/s: CT scan, possible [...] (02/07/2020): Added automatically from request for surgery [id number] Immunizations Immunization Administration Dates Next Due Influenza, Unspecified 11/20/2019 Social History Tobacco Use Types Packs/Day Years Used Date Smoking Tobacco: Every Day Cigarettes 1 35.3 Started: 1989 Smokeless Tobacco: Never Tobacco Cessation:Ready [...] week 03/18/2020 How often do you attend [facility] or yarsanism services? 1 to 4 times per year 03/18/2020 Do you belong to any clubs o r organizations such as christian groups, unions, fraternal or athletic groups, or [...] on file Legal Sex Female 12:19 AM SHAPER SET UP OPERATOR Gender Identity Female 04/02/2020 9:48 AM SHAPER SET UP OPERATOR Sexual Orientation Choose not to disclose 2020 9:48 AM SHAPER SET UP OPERATOR Last Filed Vital Signs Vital Sign Reading Time Taken Comments Blood Pressure 94/61 04/09/2020 7:39 AM SHAPER SET UP OPERATOR Pulse 88 04/09/2020 7:39 AM SHAPER SET UP OPERATOR Temperature 36 C (96.8 F) 04/09/2020 7:39 AM SHAPER SET UP OPERATOR Respiratory Rate 18 03/21/2020 9:28 AM SHAPER SET UP OPERATOR Oxygen Saturation 94% 03/21/2020 9:28 AM SHAPER SET UP OPERATOR Inhaled Oxygen Concentration - - Weight 78.6 kg (173 lb 3.2 oz) 04/09/2020 7:39 A M SHAPER SET UP OPERATOR Height 161.3 cm (5' 3.5 ) 04/09/2020 7:39 AM SHAPER SET UP OPERATOR Body Mass Index 30.2 04/09/2020 7:39 AM SHAPER SET UP OPERATOR Plan of Treatment Not on file Insurance Agent Ace OOS Agent Ace OOS Advance Directives For more information, please contact: [phone] * Full Code (Latest Code Status on File) Date Activated Date Inactivated Comments 03/18/2020 3:19 AM 03/21/2020 3:13 PM * Full Code Date Activated Date Inactivated Comments 02/24/2020 11:16 AM 02/26/2020 8:36 PM Care Teams Landing Gear Mechanic Relationship Specialty Start Date End Date Ernst Lawton MD Diesel Trailer Mechanic Gastroenterology 02/06/20 Scott Riddle MD Surgeon Colon and Rectal Surgery 02/06/20
--- OUTSIDE RECORDS SUMMARY | 2024-06-19 07:36 | XMS_ITS | Clinical Summary ---
Author Organization [facility] Address [address] [place] [address] Care Team Providers Care Horse Rancher Name Role Phone Ernst Lawton MD Unavailable [phone] Scott Riddle MD Unavailable [phone] Allergies Active Allergy Reactions Criticality Noted [...] 03/18/2020 Assessment & Plan (03/20/2020 11:03 AM UTILITY SPRAY OPERATOR): - IR c/s: CT scan, possible [...] (02/07/2020): Added automatically from request for surgery [id number] Immunizations Immunization Administration Dates Next Due Influenza, [...] often do you attend chur ch or mosque services? 1 to 4 times per year 03/18/2020 Do you belong to any clubs o r organizations such as roman catholic groups, unions, fraternal or athletic groups, or [...] on file Legal Sex Female 12:19 AM UTILITY SPRAY OPERATOR Gender Identity Female 04/02/2020 9:48 AM UTILITY SPRAY OPERATOR Sexual Orientation Choose not to disclose 2020 9:48 AM UTILITY SPRAY OPERATOR Obstetrics History Last Filed Vital Signs Vital Sign Reading Time Taken Comments Blood Pressure 94/61 04/09/2020 7:39 AM UTILITY SPRAY OPERATOR Pulse 88 04/09/2020 7:39 AM UTILITY SPRAY OPERATOR Temperature 36 C (96.8 F) 04/09/2020 7:39 AM UTILITY SPRAY OPERATOR Respiratory Rate 18 03/21/2020 9:28 AM UTILITY SPRAY OPERATOR Oxygen Saturation 94% 03/21/2020 9:28 AM UTILITY SPRAY OPERATOR Inhaled Oxygen Concentration - - Weight 78.6 kg (173 lb 3.2 oz) 04/09/2020 7:39 A M UTILITY SPRAY OPERATOR Height 161.3 cm (5' 3.5 ) 04/09/2020 7:39 AM UTILITY SPRAY OPERATOR Body Mass Index 30.2 04/09/2020 7:39 AM UTILITY SPRAY OPERATOR Plan of Treatment Health Maintenance Due Date Last Done Comments Breast Cancer Screening-Mammogram 1969 Cervical Cancer Screening 1969 Colon Cancer Screening-Colonoscopy 1969 Depression Screening 1969 Hepatitis C Screening 1969 DTaP/Tdap/Td Vaccine (1 - Tdap) 1980 Hepatitis B Screening 07/06/1987 Regular Well Visit/Exam 18-64 07/06/1987 Pneumococcal vaccine <65 (1 of 2 - PCV) 1988 Zoster Vaccine (1 of 2) 1988 Influenza Vaccine (Season Ended) 2024 11/28/19 20, 11/20/2019 Insurance [place] [employer] ACCESS OOS Advance Directives For more information, please contact: [phone] * Full Code (Latest Code Status on File) Date Activated Date Inactivated Comments 03/18/2020 3:19 AM 03/21/2020 3:13 PM * Full Code Date Activated Date Inactivated Comments 02/24/2020 11:16 AM 02/26/2020 8:36 PM Care Teams Horse Rancher Relationship Specialty Start Date End Date Ernst Lawton MD Linen Supervisor Gastroenterology 02/06/20 Scott Riddle MD Surgeon Colon and Rectal Surgery 02/06/20
== END 2024-06-19 07:30 | disposition home or self-care (01) ==
PROVIDERS: PCP Family Medicine; Visit Provider Obstetrics & Gynecology
DX: Z12.31 Encounter for screening mammogram for malignant neoplasm of breast (principal)
CPT/HCPCS: 77063; 77067

== ENCOUNTER 2024-12-01 00:19 | Day surgery (SDC) | payer BC, SELFPAY ==
[2024-08-02 10:52] VITALS: BMI 31.0
[2024-11-22 14:07] VITALS: BMI 31.0
--- OUTSIDE RECORDS SUMMARY | 2024-12-01 00:22 | XMS_ITS | Encounter Summary ---
Author Organization [facility] Healthcare Address [address] [place] [address] Care Team Providers Care Automotive Design Layout Drafter Name Role Phone Ernst Lawton MD Unavailable [phone] Scott Riddle MD Unavailable [phone] Alma Toth DO Primary Care Provider [phone] Encounter Details Date Type Department Care Team (Late st Contact Info) Description 03/20/2020 Telephone [facility] Radiology [address] [place] [address] Janelle Lin RN Social History Tobacco Use Types Packs/Day Years Used Date Smoking Tobacco: Every Day Cigarettes 1 35.8 Started: 1989 Smokeless Tobacco: Never Comments:on/ off [...] file 03/18/2020 Social Connection and Isolation Panel Answer Date Recorded In a typical week, how many times do you talk on the phone with family, friends, or neighbors? Twice a week 03/18/19 21 How often do you get togethe r with friends or relatives? Twice a week 03/18/2020 How often do you attend chur ch or congregation services? 1 to 4 times per year 03/18/2020 Do you belong to any clubs o r organizations such as buddhist groups, unions, fraternal or athletic groups, or [...] on file Legal Sex Female 12:19 AM BATHING SUIT MAKER Gender Identity Female 04/02/2020 9:48 AM BATHING SUIT MAKER Sexual Orientation Choose not to disclose 2020 9:48 AM BATHING SUIT MAKER documented as of this encounter Plan of Treatment Not on file documented as of this encounter Visit Diagnoses Not on filedocumented in this encounter Care Teams Automotive Design Layout Drafter Relationship Specialty Start Date End Date Alma Toth DO PCP - General 03/20/20 03/20/20 Ernst Lawton MD Doctor Naturopathic Gastroenterology 02/06/20 Scott Riddle MD Surgeon Colon and Rectal Surgery 02/06/20 documented as of this encounter
--- OUTSIDE RECORDS SUMMARY | 2024-12-01 00:22 | XMS_ITS ---
Author Organization [facility] Address [address] [place] [address] Care Team Providers Care Diamond Driller Name Role Phone Ernst Lawton MD Unavailable [phone] Scott Riddle MD Unavailable [phone] Active Problems Problem Noted Date Diagnosed Date Angio-edema 09/16/2020 Urticaria, chronic 09/16/2020 Chronic arthralgias of knees and hips 09/16/2020 Colon polyp 04/09/2020 Intra-abdominal abscess 03/18/2020 Assessment & Plan (03/20/2020 11:03 AM TUMBLER MACHINE OPERATOR): - IR c/s: CT scan, possible [...] (02/07/2020): Added automatically from request for surgery [id number]
--- OUTSIDE RECORDS SUMMARY | 2024-12-01 00:22 | XMS_ITS | Clinical Summary ---
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 1 to 4 times per year 03/18/2020 Do you belong to any clubs o r organizations such as rastafarian groups, unions, fraternal or athletic groups, or [...] on file Legal Sex Female 12:19 AM PROFESSIONAL ATHLETES COACH Gender Identity Female 04/02/2020 9:48 AM PROFESSIONAL ATHLETES COACH Sexual Orientation Choose not to disclose 2020 9:48 AM PROFESSIONAL ATHLETES COACH Obstetrics History Last Filed Vital Signs Vital Sign Reading Time Taken Comments Blood Pressure 94/61 04/09/2020 7:39 AM PROFESSIONAL ATHLETES COACH Pulse 88 04/09/2020 7:39 AM PROFESSIONAL ATHLETES COACH Temperature 36 C (96.8 F) 04/09/2020 7:39 AM PROFESSIONAL ATHLETES COACH Respiratory Rate 18 03/21/2020 9:28 AM PROFESSIONAL ATHLETES COACH Oxygen Saturation 94% 03/21/2020 9:28 AM PROFESSIONAL ATHLETES COACH Inhaled Oxygen Concentration - - Weight 78.6 kg (173 lb 3.2 oz) 04/09/2020 7:39 A M PROFESSIONAL ATHLET[employer] Height 161.3 cm (5' 3.5) 04/09/2020 7:39 AM PROFESSIONAL ATHLETES COACH Body Mass Index 30.2 04/09/2020 7:39 AM PROFESSIONAL ATHLETES COACH Plan of Treatment Health Maintenance Due Date Last Done Comments Breast Cancer Screening-Mammogram 1969 Cervical Cancer Screening 1969 Colon Cancer Screening-Colonoscopy 1969 Depression Screening 1969 Hepatitis C Screening 1969 DTaP/Tdap/Td Vaccine (1 - Tdap) 1980 Hepatitis B Screening 07/06/1987 Regular Well Visit/Exam 18-64 07/06/1987 Pneumococcal vaccine <65 (1 of 2 - PCV) 1988 Zoster Vaccine (1 of 2) 1988 Influenza Vaccine (#1) 2024 11/28/2019, 2019 Insurance [employer] OOS [employer] ACCESS OOS Advance Directives For more information, please contact: [phone] * Full Code (Latest Code Status on File) Date Activated Date Inactivated Comments 03/18/2020 3:19 AM 03/21/2020 3:13 PM * Full Code Date Activated Date Inactivated Comments 02/24/2020 11:16 AM 02/26/2020 8:36 PM Care Teams Filleter Relationship Specialty Start Date End Date Ernst Lawton MD [employer]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
[2024-12-01 07:49] VITALS: BP 109/65; PULSE 69; RESP 18; TEMP 36.1; O2SAT 96
[2024-12-01 07:54] LABS: BEDSIDEPREGUCG Negative (Negative)
--- NOTE | 2024-12-01 08:02 | WPDANESEPPF ---
Anes - Initial Pre Proc Eval Procedure: Operation Date: 12/01/24 09:00 Proposed Procedures p Colonoscopy - Fermin Bonilla MD Date/Time: 12/01/24 08:02 Surgeon: Fermin Bonilla MD Pre Op Diagnosis: Personal history of colon polyps, unspecified Patient Data Age: 54 Gender: F Height: 1.6 m Weight: 85.4 kg Last Vital Signs Temp 36.1 C L 12/01/24 07:49 Pulse 69 12/01/24 07:49 Resp 18 12/01/24 07:49 BP 109/65 12/01/24 07:49 Pulse Ox 96 12/01/24 07:49 O2 Del Method Room Air 12/01/24 07:49 Allergies Allergy/AdvReac Type Severity Reaction Status Date / Time pseudoephedrine AdvReac Intermediate Dizziness Verified 12/01/24 07:48 Home Medications ?Medication ?Instructions ?Recorded ?Confirmed ?Type inhalational spacing device #1 ea 08/30/20 12/15/23 Rx (Aerochamber with Flowsignal) cetirizine 10 mg tablet (Zyrtec) 10 mg PO HS 03/15/23 11/22/24 History simvastatin 10 mg tablet 10 mg PO QPM 05/15/24 11/22/24 History Laboratory Tests 12/01/24 07:52 POC Urine HCG, Qual Negative (Negative) Patient hx anesthesia problems: none Family hx anesthesia problems: none Results Review: All pre-operative results and documents have been reviewed as part of the pre-operative evaluation. [facility] Past Medical History Medical History Breast asymmetry Screening mammogram, encounter for Anxiety Depression PONV (postoperative nausea and vomiting) Hives of unknown origin Colonic mass Occult blood in stools GERD (gastroesophageal reflux disease) Thigh abscess High cholesterol Asthma Obesity Allergies Arthritis IBS (irritable bowel syndrome) Migraine Surgical History Surgical History History of gynecologic surgery (~1999) cryosurgery--abnormal cells History of bladder suspension procedure (05/17/17) History of endometrial ablation (~2007) hscope d&c/endometrial ablation History of dilation and curettage (~2007) hscope d&c/endometrial ablation Status post colectomy right colectomy 02/24/20 Abscess of right thigh H/O tubal ligation (~2005) Family History Family History Grandparent Diabetes mellitus Cerebrovascular accident Heart disease paternal grandfather Father Hypertension, Onset Age: 51 Family history of elevated blood lipids, Onset Age: 51 Acute myocardial infarction, Onset Age: 51 Family history of coronary artery disease, Onset Age: 51 Heart disease Mother Family history of rheumatoid arthritis Social History Social History (Updated 10/12/24 @ 08:56 by Angelina Jones) Social History: Caffeine-tea Smoking packs per day: 1 Smoking cigarettes per day: 20.0 Years smoked: 15 Smoking pack-years: 15.00 Smoking status: Current every day smoker Tobacco type: cigarettes Second hand tobacco smoke exposure: Yes Additional smoking assessment comments: stopped when started feeling sick 05/12/24 Alcohol intake: never Substance use: current Substance use type: marijuana Last use: 05/08/24 Do You Feel Safe in your Home?: Yes Lack of Transportation: No Lack of Food: Never True Current Housing: I Have Housing Concerned About Future Housing: No Difficulty Paying Gas/Electric Bills: No Difficulty Paying for Meds: No Currently Unemployed: No Education: Don't Know Difficulty w/ Childcare or Family Care: No Living arrangements: other Additional living arrangements comments: Occupation/Education: occupation 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 Gender identity (if verbalized by the patient): Female Sexual Orientation (if Verbalized by the Patient): Straight or Heterosexual Spiritual care concerns: No Anes - Eval Final PreProcedure Day of Procedure 12/01/24 08:02 Patient weight: obese Heart: regular rate and rhythm Lungs: clear to auscultation Airway: Mallampati scale class II Neurological: alert and oriented Last oral intake: >/= 8 hours ASA classification: III Emergent: no Anesthetic plan: proceed Anesthesia type and monitoring: general GIVS and standard monitoring Results Review: All pre-operative results and documents have been reviewed as part of the pre-operative evaluation. Informed Consent: The patient's anesthetic plan and its attendant risks and benefits were discussed with the patient/family/POA. Questions were solicited and answers provided to the satisfaction of the patient/family/POA.
[2024-12-01] MEDS: LACTATED RINGERS 1,000 ML 150 ML IV CONT (08:09)
--- NOTE | 2024-12-01 09:03 | PM.IMHP ---
H&P: HPI History of Present Illness Date/Time: 12/01/24 09:03 Chief Complaint: History of colon polyps Narrative: The patient had a history of very large tubulovillous adenomas, undergoing right hemicolectomy 3 years ago. She is here for surveillance colonoscopy. Review of Systems Review of Systems: All systems reviewed & are unremarkable except as noted in HPI and below PMFSH Past Medical History Medical History Breast asymmetry Screening mammogram, encounter for Anxiety Depression PONV (postoperative nausea and vomiting) Hives of unknown origin Colonic mass Occult blood in stools GERD (gastroesophageal reflux disease) Thigh abscess High cholesterol Asthma Obesity Allergies Arthritis IBS (irritable bowel syndrome) Migraine Surgical History Surgical History History of gynecologic surgery (~1999) cryosurgery--abnormal cells History of bladder suspension procedure (05/17/17) History of endometrial ablation (~2007) hscope d&c/endometrial ablation History of dilation and curettage (~2007) hscope d&c/endometrial ablation Status post colectomy right colectomy 02/24/20 Abscess of right thigh H/O tubal ligation (~2005) Family History Family History Grandparent Diabetes mellitus Cerebrovascular accident Heart disease paternal grandfather Father Hypertension, Onset Age: 51 Family history of elevated blood lipids, Onset Age: 51 Acute myocardial infarction, Onset Age: 51 Family history of coronary artery disease, Onset Age: 51 Heart disease Mother Family history of rheumatoid arthritis Social History Social History (Updated 10/12/24 @ 08:56 by Angelina Jones) Social History: Caffeine-tea Smoking packs per day: 1 Smoking cigarettes per day: 20.0 Years smoked: 15 Smoking pack-years: 15.00 Smoking status: Current every day smoker Tobacco type: cigarettes Second hand tobacco smoke exposure: Yes Additional smoking assessment comments: stopped when started feeling sick 05/12/24 Alcohol intake: never Substance use: current Substance use type: marijuana Last use: 05/08/24 Do You Feel Safe in your Home?: Yes Lack of Transportation: No Lack of Food: Never True Current Housing: I Have Housing Concerned About Future Housing: No Difficulty Paying Gas/Electric Bills: No Difficulty Paying for Meds: No Currently Unemployed: No Education: Don't Know Difficulty w/ Childcare or Family Care: No Living arrangements: other Additional living arrangements comments: Occupation/Education: occupation 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 Gender identity (if verbalized by the patient): Female Sexual Orientation (if Verbalized by the Patient): Straight or Heterosexual Spiritual care concerns: No Meds Home Medications and Allergies Home Medications ?Medication ?Instructions ?Recorded ?Confirmed ?Type inhalational spacing device #1 ea 08/30/20 12/15/23 Rx (Aerochamber with Flowsignal) cetirizine 10 mg tablet (Zyrtec) 10 mg PO HS 03/15/23 11/22/24 History simvastatin 10 mg tablet 10 mg PO QPM 05/15/24 11/22/24 History Allergies Allergy/AdvReac Type Severity Reaction Status Date / Time pseudoephedrine AdvReac Intermediate Dizziness Verified 12/01/24 07:48 Vital Signs Vital Signs - 24 hr 12/01/24 07:49 Temperature 97 F L Pulse Rate 69 Respiratory Rate 18 Blood Pressure 109/65 Pulse Oximetry 96 Oxygen Delivery Room Air Exam Const: General: cooperative and healthy appearing Resp: Effort & Inspection: normal respiratory effort and able to speak in complete sentences Auscultation: clear to auscultation bilaterally Cardio: Rate: regular rate Rhythm: regular rhythm GI: Inspection: normal to inspection GI Palp: No No hepatosplenomegaly present Auscultation: normal bowel sounds Rectal Exam: deferred Skin: General skin exam: normal color Psych: Appearance: grossly normal Mental Status: mental status grossly normal Assessment and Plan Assessment and plan (1) History of colon polyps: Code(s): Z86.010 - Personal history of colon polyps Status: Acute Assessment and Plan: The patient is deemed a good candidate for the procedure. Consent signed. Will proceed.
[2024-12-01] MEDS: SIMETHICONE ORAL SUSPENSION 20 MG/0.3 ML 30 ML BOTTLE 0.6 ML IRRIGATION (09:15)
[2024-12-01 09:26] VITALS: BP 85/47; PULSE 72; RESP 19; O2SAT 97
[2024-12-01 09:36] VITALS: BP 111/72; PULSE 56; RESP 19; O2SAT 99
[2024-12-01 09:46] VITALS: BP 107/70; PULSE 64; RESP 19; O2SAT 98
== END 2024-12-01 09:58 | disposition home or self-care (01) ==
PROVIDERS: Anesthesiology; PCP Family Medicine; Referring Provider Family Medicine; Visit Provider Internal Medicine Gastroenterology
PROC: 0DJD8ZZ Inspection of Lower Intestinal Tract, Via Natural or Artificial Opening Endoscopic (ICD-10-PCS; CPT 45378; principal; 2024-12-01 09:00)
DX: Z12.11 Encounter for screening for malignant neoplasm of colon (principal); Z86.0100 Personal history of colon polyps, unspecified; Z90.49 Acquired absence of other specified parts of digestive tract; Z98.0 Intestinal bypass and anastomosis status; Z87.891 Personal history of nicotine dependence; F12.90 Cannabis use, unspecified, uncomplicated; E66.9 Obesity, unspecified; Z68.33 Body mass index [BMI] 33.0-33.9, adult
CPT/HCPCS: 45378; J2003; J2704; J7120